=== PATIENT | female | born 1950 | race Caucasian/White ===

== ENCOUNTER → 2017-10-15 15:26 | Outpatient (CLI) | payer MEDICARE, SELFPAY ==
--- NOTE | 2017-10-15 15:31 | MM_ITS ---
MM Dig screening mamm BI w/CAD CAD Screening ORDERING PHYSICIAN : Madhu Fleming MD PATIENT AGE: 67 years GENDER: Female COMPARISON: Previous mammograms available dated November 2012. Also October 2010 and 2011 We are waiting on interval previous studies from [facility]. INDICATION: Routine screening. No hormones. No new complaints Family history. Mother with breast cancer postmenopausal. TECHNIQUE: Standard CC and MLO images were obtained. R2 CAD reviewed. FINDINGS: Lower density breast with no dominant mass nor suspicious calcifications on breast. CAD computer review highlights no areas of concern either RIGHT BREAST: Mild asymmetry lateral laterally of reflect some minimal asymmetric glandular tissue. LEFT BREAST:Left breast appears stable no new areas of concern IMPRESSION: . Stable bilateral mammogram with no significant new findings. Bilateral follow-up one year recommended.. BI-RADS Category: 1 Negative RECOMMENDED FOLLOW-UP: 1YR - 1 YEAR FOLLOW-UP (A letter has been sent to the patient regarding results of the study.)
--- NOTE | 2017-10-15 15:33 | XR_ITS ---
XR DEXA axial skeleton COMPARISON: None HISTORY: Patient is postmenopausal TECHNIQUE: DEXA scanning lumbar spine and bilateral hips FINDINGS: The average BMD lumbar spine L1-L4 is 0.936 g centimeters square with a T score of -2.0. The total BMD left hip is 0.865 g centimeters square with T score -1.1. The left femoral neck is 0.753 g centimeters square with T score of -2.1.] Right hip values are similar. IMPRESSION: T score values in the osteopenia range for lumbar spine and bilateral hips, consider follow-up study in 2 years
== END ==
PROVIDERS: Family Provider Family Medicine; PCP Family Medicine; Visit Provider Family Medicine
DX: Z12.31 Encounter for screening mammogram for malignant neoplasm of breast (principal); Z78.0 Asymptomatic menopausal state
CPT/HCPCS: 77067; 77080

== ENCOUNTER → 2020-10-04 10:05 | Outpatient (CLI) | payer MEDICARE, SELFPAY ==
--- NOTE | 2020-10-04 10:09 | XR_ITS ---
PROCEDURE: XR FOOT WT BEARING RT 3V CLINICAL INDICATION: foot pain Right foot pain COMPARISON: No exams were available for comparison FINDINGS: No fracture or dislocation. No lytic or blastic change. There is normal mineralization. The joint spaces are well-preserved. No significant degenerative/arthritic changes. No erosive changes evident. Other findings:There is a small calcaneal spur. IMPRESSION: No acute findings. Dictated by: Mango Wheeler MD 10/04/2020 13:55 Mango Wheeler MD in [place] 10/04/2020 13:55
--- NOTE | 2020-10-04 10:09 | XR_ITS ---
PROCEDURE: XR FOOT WT BEARING LT 3V CLINICAL INDICATION: foot pain Left foot pain COMPARISON: No exams were available for comparison FINDINGS: No fracture or dislocation. No lytic or blastic change. There is normal mineralization. Pes planus. Small calcaneal spurs noted. Mild bony hypertrophy noted at the distal aspect of the 1st metatarsal. Other findings:None. IMPRESSION: Pes planus Dictated by: Mango Wheeler MD 10/04/2020 13:54 Mango Wheeler MD in [place] 10/04/2020 13:54
== END ==
PROVIDERS: PCP Family Medicine; Visit Provider Nurse Practitioner
DX: M79.672 Pain in left foot (principal); M79.671 Pain in right foot
CPT/HCPCS: 73630

== ENCOUNTER 2024-05-27 13:15 | Outpatient (RCR) | payer MEDICARE, SELFPAY | END 2024-05-27 23:59 | disposition home or self-care (01) | LOC: ST 13:15 | PROVIDERS: PCP Family Medicine; Visit Provider Physical Medicine & Rehabilitation | DX: I63.89 Other cerebral infarction (principal) | CPT/HCPCS: 92523 ==

== ENCOUNTER 2024-07-11 10:43 | Outpatient (CLI) | payer MEDICARE, SELFPAY ==
--- NOTE | 2024-07-11 | CA_ITS ---
FINAL REPORT TECHNIQUE: Bilateral lower extremity venous duplex was performed with augmentation and compression. CLINICAL HISTORY: HTN. Patient had a stroke 03/2024 with brain surgery at that time. She states she had DVT's in bilateral legs performed at outside hospital 03/2024. She states temporary filters were placed until DVT's resolve. Scan performed today to reassess DVT status. COMPARISON: None FINDINGS: Proper flow is seen throughout the deep venous systems bilaterally. There is no evidence of deep venous thrombosis. IMPRESSION: No evidence of deep venous thrombosis. Reviewed, Interpreted and Dictated by Tigre Del Rosario MD Transcribed by Rosalba Glover Authenticated and . [facility]
--- NOTE | 2024-07-11 11:37 | XR_ITS ---
FINAL REPORT CLINICAL HISTORY: LEFT KNEE PAIN: INCLUDE SUNRISE VIEW FINDINGS: Left knee Four views were obtained. There is no fracture or dislocation. The joint spaces appear normal. No soft tissue abnormality is identified. IMPRESSION: No acute process. Reviewed, Interpreted and Dictated by Tigre Del Rosario MD Transcribed by Deanne Latham Authenticated and [facility]
== END 2024-07-11 23:59 | disposition home or self-care (01) ==
PROVIDERS: PCP Family Medicine; Visit Provider Nurse Practitioner
DX: M79.89 Other specified soft tissue disorders (principal); M25.562 Pain in left knee; I82.403 Acute embolism and thrombosis of unspecified deep veins of lower extremity, bilateral
CPT/HCPCS: 73564; 93970

== ENCOUNTER 2024-07-15 10:00 | Outpatient (RCR) | payer MEDICARE, SELFPAY | END 2024-07-15 23:59 | disposition home or self-care (01) | LOC: PT 10:00 | PROVIDERS: PCP Family Medicine; Visit Provider Physical Medicine & Rehabilitation | DX: I63.9 Cerebral infarction, unspecified (principal) | CPT/HCPCS: 97110; 97163; 97530 ==

== ENCOUNTER 2024-07-15 11:00 | Outpatient (RCR) | payer MEDICARE, SELFPAY | END 2024-07-15 23:59 | disposition home or self-care (01) | LOC: OT 11:00 | PROVIDERS: PCP Family Medicine; Visit Provider Physical Medicine & Rehabilitation | DX: I63.9 Cerebral infarction, unspecified (principal) | CPT/HCPCS: 97014; 97110; 97140; 97166; G0283 ==

== ENCOUNTER 2024-08-11 14:00 | Outpatient (RCR) | payer MEDICARE, SELFPAY | END 2024-08-11 23:59 | disposition home or self-care (01) | LOC: OT 14:00 | PROVIDERS: PCP Family Medicine; Visit Provider Physical Medicine & Rehabilitation | DX: I63.9 Cerebral infarction, unspecified (principal) | CPT/HCPCS: 97014; 97110; 97140; G0283 ==

== ENCOUNTER 2024-08-11 15:00 | Outpatient (RCR) | payer MEDICARE, SELFPAY | END 2024-08-11 23:59 | disposition home or self-care (01) | LOC: PT 15:00 | PROVIDERS: PCP Family Medicine; Visit Provider Physical Medicine & Rehabilitation | DX: I63.9 Cerebral infarction, unspecified (principal) | CPT/HCPCS: 97110; 97530 ==

== ENCOUNTER 2024-08-21 13:33 | Outpatient (CLI) | payer MEDICARE, SELFPAY ==
[2024-08-21 14:28] LABS: Basophils # 0.1 K/mm3 (0-0.2); Basophils % 0.7 % (0.1-2.0); Eosinophils # 0.1 K/mm3 (0.0-0.4); Eosinophils % 1.4 % (0.1-12.0); Hematocrit 36.1 % (37.0-47.0); Hemoglobin 11.4 g/dL (12.2-16.2); Lymphocytes # 5.7 K/mm3 (0.7-4.5); Lymphocytes % 59.2 % (10-50); Mean Corpuscular HGB Conc 31.6 g/dL (31.8-35.4); Mean Corpuscular Hemoglobin 29.5 pg (27.0-31.2); Mean Corpuscular Volume 93.5 fl (81-99); Mean Platelet Volume 9.9 fl (7.4-10.4); Monocytes # 0.5 K/mm3 (0.1-1.0); Monocytes % 5.2 % (1.7-9.3); Neutrophils # 3.2 K/mm3 (1.8-7.8); Neutrophils % 33.3 % (37.0-80.0); Platelet Count 193 K/mm3 (142-424); Red Blood Count 3.86 M/mm3 (4.20-5.40); Red Cell Distribution Width 13.1 % (11.5-17.5); White Blood Count 9.5 K/mm3 (4.8-10.8)
[2024-08-21 14:40] LABS: MANUAL DIFFERENTIAL MANUAL DIFFERENTIAL (MANUAL DIFF)
[2024-08-21 14:48] LABS: Alanine Aminotransferase 17 U/L (12-78); Albumin Level 4.5 g/dl (3.5-5.0); Albumin/Globulin Ratio 2.3 (1.1-1.8); Alkaline Phosphatase 82 U/L (38-126); Aspartate Amino Transferase 30 U/L (14-36); Bilirubin,Total 0.2 mg/dl (0.2-1.3); Blood Urea Nitrogen 13 mg/dl (7-17); Carbon Dioxide 31 mmol/L (22.0-30.0); Chloride 105 mmol/L (98-107); Estimated Glomerular Filt Rate 82 ml/min (>60); GFR (African American) 99 ML/MIN (>60); Glucose 91 mg/dl (74-100); Lactate Dehydrogenase 217 U/L (313-618); Sodium 141 mmol/L (136-145); Total Protein,Serum 6.5 g/dl (6.3-8.2)
[2024-08-21 15:07] LABS: Eosinophils % 2 % (0-3); Lymphocytes % 54 % (10-50); Monocytes % 7 % (2-9); Neutrophils % 37 % (42-76); Platelet Estimate Normal; RBC Morphology Normal; Total Cells Counted 100
== END 2024-08-21 23:59 | disposition home or self-care (01) ==
LOC: LAB 13:35
PROVIDERS: PCP Family Medicine; Visit Provider Internal Medicine Medical Oncology
DX: C91.10 Chronic lymphocytic leukemia of B-cell type not having achieved remission (principal)
CPT/HCPCS: 36415; 80053; 83615; 85007; 85025; 85027

== ENCOUNTER 2024-09-11 15:00 | Outpatient (RCR) | payer MEDICARE, SELFPAY | END 2024-09-11 23:59 | disposition home or self-care (01) | LOC: OT 15:00 | PROVIDERS: PCP Family Medicine; Visit Provider Physical Medicine & Rehabilitation | DX: I63.9 Cerebral infarction, unspecified (principal) | CPT/HCPCS: 97014; 97110; 97140; G0283 ==

== ENCOUNTER 2024-10-06 14:00 | Outpatient (RCR) | payer MEDICARE, SELFPAY | END 2024-10-06 23:59 | disposition home or self-care (01) | LOC: OT 14:00 | PROVIDERS: PCP Family Medicine; Visit Provider Physical Medicine & Rehabilitation | DX: I63.9 Cerebral infarction, unspecified (principal) | CPT/HCPCS: 97014; 97110; 97140; 97168; 97530; G0283 ==

== ENCOUNTER 2024-11-12 16:00 | Outpatient (RCR) | payer MEDICARE, SELFPAY | END 2024-11-12 23:59 | disposition home or self-care (01) | LOC: OT 16:00 | PROVIDERS: PCP Family Medicine; Visit Provider Physical Medicine & Rehabilitation | DX: I63.9 Cerebral infarction, unspecified (principal) | CPT/HCPCS: 97014; 97110; 97140; 97168; 97530; G0283 ==

== ENCOUNTER 2024-12-19 08:17 | Outpatient (CLI) | payer MEDICARE, SELFPAY ==
--- NOTE | 2024-12-19 08:21 | XR_ITS ---
FINAL REPORT TECHNIQUE: Bone densitometry calculations of the lumbar spine and bilateral hips were obtained. CLINICAL HISTORY: screening COMPARISON: None FINDINGS: Using L1-4, the bone mineral density of the spine is 0.717 g/cm2, corresponding to T-score of -3.0 and a Z score of -0.6. This is within the range of osteoporosis. Using the left hip, the bone mineral density of the femoral neck is 0.575 g/cm2, corresponding to a T-score of -2.5 and a Z-score of -0.4. This is within the range of osteoporosis. Using the right hip, the bone mineral density of the femoral neck is 0.558 g/cm?, corresponding to a T-score of -2.6 and a Z-score of -0.6. This is within the range of osteoporosis. NOTE: T-score: Standard deviation compared with peak bone mass of young adult mean. *Following the recommendations of the International Society of Bone densitometry, classification of hip BMD is based on the lower of two T-scores; total hip or femoral neck. IMPRESSION: 1. Bone mineral density of the lumbar spine within the range of osteoporosis. 2. Bone mineral density of the bilateral femoral necks within the range of osteoporosis. Reviewed, Interpreted and Dictated by Lizzy Winter MD Transcribed by Jackelyn Rogers Authenticated and [facility]
--- NOTE | 2024-12-19 08:21 | MM_ITS ---
PROCEDURE INFORMATION: Exam: MG Bilateral Screening 3D Mammography Exam date and time: 12/19/2024 8:29 AM Age: 74 years old Clinical indication: Screening examination TECHNIQUE: Imaging protocol: Bilateral Screening tomosynthesis and 2D mammography including computer-aided detection (CAD) when performed. COMPARISON: 1. MG SCBI MM Dig screening mamm BI w/CAD 10/15/2017 3:40 PM 2. MG MAMMO SCREEN 06/28/2015 11:21 AM FINDINGS: MAMMOGRAPHY: Breast composition: There are scattered areas of fibroglandular density. Mass: No suspicious masses. Architectural distortion: None. Calcifications: No suspicious calcifications. Asymmetric density: None. Skin thickening: None. Axillary adenopathy: None. IMPRESSION: No mammographic evidence of malignancy. Annual screening is recommended unless otherwise clinically indicated. ASSESSMENT: BI-RADS Category 1: Negative.
== END 2024-12-19 23:59 | disposition home or self-care (01) ==
LOC: RAD 08:19
PROVIDERS: PCP Family Medicine; Visit Provider Family Medicine
DX: Z12.31 Encounter for screening mammogram for malignant neoplasm of breast (principal); R92.323 Mammographic fibroglandular density, bilateral breasts; M81.0 Age-related osteoporosis without current pathological fracture
CPT/HCPCS: 77063; 77067; 77080

== ENCOUNTER 2025-02-20 12:13 | Outpatient (CLI) | payer MEDICARE, SELFPAY ==
--- OUTSIDE RECORDS SUMMARY | 2024-05-12 14:05 | XMS_ITS | Encounter Summary ---
Author Organization [place] [address] Care Team Providers Care Videotape Editor Name Role Phone Unavailable Primary Care Provider Unavailabl e Encounter Details Date Type Department Care Team (Late st Contact Info) Description 05/12/2024 2:05 PM EDT Hospital Encounter [facility] Referral Lab [address] [place] [phone] Elmer Byrne MD [address] [phone] Social History Tobacco Use Types Packs/Day Years [...] Final Result [facility] [address] [facility] , [address] [place] [phone] documented in this encounter Visit Diagnoses Not on filedocumented in this encounter
--- OUTSIDE RECORDS SUMMARY | 2025-01-28 15:00 | XMS_ITS | Encounter Summary ---
Author Organization [facility] Address [address] 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) Talat Rios MD [address] [address] Phone: tel: fax: Referral ID Status Reason Start Date Expiration Date Visits Requested Visits Authorized [id number] Authorized Specialty Services Required 01/28/2025 07/30/2026 1 1 Scheduling Instructions Memory clinic for cerebral amyloid angiopathy Reason for Visit * Consultation (Routine) - Closed Specialty Diagnoses / Procedures Referred By Jordin mckeon Referred To Contact Neurology Diagnoses 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) Juancarlos Cardenas, CONRADO [address] [facility] [address] [place] [address] Phone: tel: fax: [facility] [address] [place] [address] Phone: tel: fax: Referral ID Status Reason Start Date Expiration Date V isits Requested Visits Authorized [id number] Closed Specialty Services Required 04/23/2024 10/23/2025 1 1 Encounter Details Date Type Department Care Team (Late st Contact Info) Description 01/28/2025 3:00 PM EDT Office Visit [facility] [address] [place] [address] Talat Rios MD [address] [place] [address] Cerebral amyloid angiopathy (CMS/HCC) (Primary Dx); 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 No 03/20/2024 Within the last year, have y ou been humiliated or emotionally abused in other ways by your partner or ex-partner? No Within the last year, have y ou been kicked, hit, slapped, or otherwise physically hurt by your partner or ex-partner? No 03/20/2024 Within the last year, have y ou been raped or forced to have any kind of sexual activity by your partner or ex-partner? No 03/20/2024 PHQ-2 Answer Date Recorded Patient Health Questionnaire-2 Score 0 07/03/2024 Hunger Vital Sign Answer Date Recorded Within the past 12 months, y ou worried that your food would run out before you got the money to buy more. Never true 03/20/20 24 Within the past 12 months, t he food you bought just didn't last and you didn't have money to get more. Never true 03/20/2024 PRAPARE - Transportation Answer Date Re corded In the past 12 months, has l ack of transportation kept you from medical appointments or from getting medications? No 11/2023 In the past 12 months, has l ack of transportation kept you from meetings, work, or from getting things needed for daily living? No 03/20/2024 Housing Stability Vital Sign Answer Maverick e Recorded In the last 12 months, was t here a time when you were not able to pay the mortgage or rent on time? No 03/20/2024 In the last 12 months, how many places have you lived? 1 03/20/2024 In the last 12 months, was t here a time when you did not have a steady place to sleep or slept in a skilled nursing (including now)? No 03/20/2024 Utilities Answer Date Recorded In the past 12 months has th e [employer], gas, oil, or water company threatened to shut off services in your home? No 03/20/2024 Comments Unknown Sex and Gender Information Value Date Recorded Sex Assigned at Not on file Legal Sex Female 11:58 AM EDT Gender Identity Not on file Sexual Orientation Not on file documented as of this encounter Last Filed Vital Signs Vital Sign Reading Time Taken Comments Blood Pressure 104/64 01/28/2025 2:33 PM EDT Pulse 55 01/28/2025 2:33 PM EDT Temperature - - Respiratory Rate - - Oxygen Saturation 98% 01/28/2025 2:33 PM EDT Inhaled Oxygen Concentration - - Weight 47.4 kg (104 lb 8 oz) 01/28/2025 2:33 PM EDT Height 160 cm (5' 3 ) 01/28/2025 2:33 PM EDT Body Mass Index 18.51 01/28/2025 2:33 PM EDT documented in this encounter Miscellaneous Notes * Patient Instructions - Talat Rios MD - 01/28/2025 3:00 PM EDT Images from the original note were not included. Cerebral Amyloid Angiopathy Decrease levetiracetam to 750mg once a day for 7 days and discontinue after that. Patient Education Risk Factors for Stroke Certain health and lifestyle issues--called risk factors--increase your chances of having a stroke.The biggest risk factor for stroke is high blood pressure. But there are many other factors that also put you at risk. The below list can help you identify which risk factors you have. That way, you know where you need to make healthy changes. Talk with your healthcare provider about ways to help reduce your risk factors. What are your risk factors? Risk factors are different for each person. Check off the factors that apply to you. Keep in mind that some factors, such as your age, can???t be changed. But others can be managed. Health risk factors You have high blood pressure. You???re overweight. You have unhealthy cholesterol levels. You have atrial fibrillation. You have atrial flutter. You???ve had a heart attack. You have narrowed arteries. You have diabetes. You are a man. You are an . You are an . You are an . Lifestyle risk factors You rarely exercise. You often eat salty, fried, or greasy foods. You smoke. You have more than 2 alcoholic drinks per day. Age and family history You???re over age 60. A parent, brother, or sister has had a stroke. Metabolic syndrome Any of the factors above puts you at increased risk for stroke. But having 3 or more of certain risk factors raises your risk more. This is a condition called metabolic syndrome. These factors include too much weight around your waist, high blood pressure, high blood sugar, and unhealthy cholesterol levels. If you're a woman, your risks may also include polycystic ovary syndrome. If you have any of these risk factors, be sure to talk with your healthcare provider about how to decrease your riskof stroke and improve your overall health. [employer] last reviewed this educational content on 08/16/2021 ?? [id number] [employer]. All rights reserved. This information is not intended as a substitute for professional medical care. Always follow your healthcare professional's instructions. * Progress Notes - Talat Rios MD - 01/28/2025 3:00 PM EDT Stroke Neurology Consult note: Dear Madhu Fleming MD, I had the pleasure of seeing Eloina Thompson who is a 74 y.o. female being seen at the [facility] today for No chief complaint on file.. Chief Complaint: brain bleed followup HPI: Pt is a 74 y.o. pleasant right handed female with significant past medical hx of gout, glaucoma, being seen in clinic as a follow-up from hospitalization 04/2024. She was admitted with suddenonset Worst headache of her life and nausea/vomiting, left-sided weakness and facial droop, imaging with moderate right frontal intraparenchymal hemorrhage, underwent neurosurgical craniotomy and evacuation, surgical pathology indicative of cerebral amyloid angiopathy. Hospitalization complicatedby new diagnoses of CLL, bilateral DVTs, thrombocytopenia, underwent IVC filter placement. IVC filter was removed in outpatient follow-up in 08/2024. Presents to clinic unaccompanied. Reports no new symptoms. Lives with . No recent ER visits,hospitalizations. Had osteoporosis diagnosed a month ago. No recent infections/other new diagnoses.Reports poor sleep. Goes to bed tired, wake up tired. has reported to pt she snores. Has not had sleep study. No falls. Patient denies any recollection of the events of the day of hospitalization. No history of seizures, was started on levetiracetam as prophylactic since hospitalization. Two routine EEGs were negative for any concerns of interictal/ ictal episodes. Denies smoking, alcohol use, illicit drug use. Past Medical History[1] Family History[2] Surgical History[3] Social History Tobacco Use Smoking status: Never Passive exposure: Never Smokeless tobacco: Never Substance Use Topics Alcohol use: Never Medications Ordered Prior to Encounter[4] Allergies[5] All medications have been reviewed today. Review of Systems: Constitutional; Eye; ENT; Respiratory; Cardiovascular; Gastrointestinal; Integumentary; Genitourinary; Musculoskeletal; Endocrine; Hematological; Neurological; Psychiatric and Allergy/Immunology all reviewed and negative except as in HPI. Objective Vitals: 01/28/25 1433 BP: 104/64 Pulse: 55 SpO2: 98% Physical Examination: Constitutional: alert, awake, in no acute distress Respiratory: no dyspnea at rest or with speech. Abdomen: soft, non distended. Cardiovascular: S1 S2 heard, no murmurs appreciated. Musculoskeletal: pulses felt normal, no gross deformities. Skin: no gross rashes on visible part of the skin. Neuro Exam: Mental status: alert, oriented to person, place and time. Speech spontaneity, comprehension, repetition, naming, reading is grossly intact. Cranial Nerves: pupils symmetric, round and briskly reactive to light bilaterally; visual thompson grossly intact to finger counting; Versions intact in all directions; facial sensations symmetric to light touch and temperature along bilateral V1-V3. Face appears grossly symmetric on smile and at rest. Hearing is grossly symmetric bilaterally to conversations. Tongue is midline on protrusion, uvulais midline. Shoulder shrug is full and 5/5 bilaterally. Motor: Right Left Shoulder abduction 5/5 5/5 Elbow flexion 5/5 5/5 Elbow extension 5/5 5/5 Fingers Key Account Manager 5/5 5/5 Fingers Extension 5/5 5/5 Hip Flexion 5/5 5/5 Knee flexion 5/5 5/5 Knee Extension 5/5 5/5 Plantar Flexion 5/5 5/5 Dorsiflexion 5/5 5/5 Sensory: light touch, temperature and vibration decreased on left upper and lower limbs. Reflexes: 2+ in bilateral biceps, triceps, brachioradialis, patellar. 1+ bilateral ankles. Adorno's negative bilaterally. Co-ordination: intact muwtpr-mr-wirg testing on right, mild ataxia/slowing on left. Gait: normal gait. Reports: Personally reviewed images today: CT head 03/19/2024 with moderate-sized right frontal intraparenchymal hemorrhage with associated cerebral edema, mass effect, midline shift. MRI head w/wo 03/20/2024: post craniotomy and hematoma evacuation, midline shift and mass effect, small areas of restricted diffusion, likely postoperative effects. Reviewed results: Surgical pathology 03/19/2024: very rare capillaries show congophilic material, suggestive of earlycerebral amyloid angiopathy. EEG 03/21/24: no seizures EEG 04/23/24: no seizures. Lab test results reviewed: A1c 5.4, LDL 87, TSH 1.5. Assessment/Plan: // right frontal IPH: 03/2024 // Cerebral Amyloid Angiopathy - discussed at length with patient that the likely etiology of hemorrhage is CAA. Encouraged avoid antithrombotics to reduce risk of future brain bleeds. This includes antiplatelet like aspirin. - decrease LEV to once a day for a week and discontinue. - Referral placed for memory clinic to discuss if any clinical trials exist for her. - Goal BP normotensive, goal A1c< 7.0, goal LDL< 70. - follow-up in Stroke Clinic in about 6 months, sooner for acute concerns. Counseling Documentation: The patient was counseled regardingdiagnostic results, prognosis, instructions for management, patient and family education, medication changes, and impressions. Education provided was written instructions. Additional time was spent in care coordination including medical record review. The total time of encounter was 78 minutes and greater than 50% of the visit was spent in counseling/coordination of care. A copy of After Visit Summary was printed and provided. All questions and concerns were addressed. Patient and family were educated to call 911 for sudden symptoms concerning for stroke. I saw and evaluated the patient with the medical student, Nedra Schmitz, MS3. I discussed the case with the medical student and agree with the findings and plan as documented. I personally performed the Exam and Medical Decision Making. I saw and evaluated the patient with the resident Dr. Jah Mcguire, PGY 4 gel Neurology. I discussed the case with the resident and agree with the findings and plan as documented. Talat Rios MD Vascular Neurology attending physician. [1] Past Medical History: Diagnosis Date Chronic lymphocytic leukemia (CMS/HCC) Glaucoma Gout Intracranial hemorrhage (CMS/HCC) [2] History reviewed. No pertinent family history. [3] Past Surgical History: Procedure Laterality Date CRANIOTOMY HYSTERECTOMY IVC FILTER PLACEMENT TONSILECTOMY, ADENOIDECTOMY, BILATERAL MYRINGOTOMY AND TUBES [4] Current Outpatient Medications on File Prior to Visit Medication Sig Dispense Refill amLODIPine (Norvasc) 10 MG tablet 1 tablet (10 mg) by Per G Tube route 1 (one) time each day. bethanechol (Urecholine) 10 MG tablet 1 tablet (10 mg) by Per G Tube route 3 (three) times a day. Calcium Carbonate-Vitamin D 250-3.125 MG-MCG tablet Take by mouth. donepezil (Aricept) 5 MG tablet 1 tablet (5 mg) by Per G Tube route every night. doxazosin (Cardura) 1 MG tablet 1 tablet (1 mg) by Per G Tube route every night. ipratropium-albuterol (Duo-Neb) 0.5-2.5 mg/3 mL nebulizer solution Take 3 mL by nebulization every 6 (six) hours if needed for wheezing. melatonin 3 MG tablet 1 tablet (3 mg) by Per G Tube route every night. polycarbophil (Fibercon) 625 MG tablet 1 tablet (625 mg) by Per G Tube route 1 (one) time each day. traZODone (Desyrel) 50 MG tablet 0.5 tablets (25 mg) by Per G Tube route every night. [DISCONTINUED] levETIRAcetam (Keppra) 750 MG tablet 1 tablet (750 mg) by Per G Tube route 2 (two) times a day. [DISCONTINUED] amantadine (Symmetrel) 50 MG/5ML solution 15 mL (150 mg) by Per G Tube route 2 (two)times a day. (Patient not taking: Reported on 01/28/2025) [DISCONTINUED] calcium carbonate 648 MG tablet tablet Take by mouth daily. (Patient not taking: Reported on 01/28/2025) [DISCONTINUED] cetirizine (ZyrTEC) 10 MG tablet 1 tablet (10 mg) by Per G Tube route every night. (Patient not taking: Reported on 01/28/2025) [DISCONTINUED] guaiFENesin (Robitussin) 100 MG/5ML solution 20 mL (400 mg) by Per G Tube route every 6 (six) hours. (Patient not taking: Reported on 01/28/2025) [DISCONTINUED] latanoprost (Xalatan) 0.005 % ophthalmic solution Administer 1 drop into both eyes every night. (Patient not taking: Reported on 01/28/2025) [DISCONTINUED] lidocaine (Lidoderm) 5 % patch Apply 1 patch topically 1 (one) time each day at the same time over 12 hours. Remove & discard patch within 12 hours or as directed by MD. (Patient not taking: Reported on 01/28/2025) [DISCONTINUED] magic butt balm (Karaya gum) CMPD (Magic Butt) Apply 1 Application topically every 1(one) hour if needed for diaper rash (diaper change). (Patient not taking: Reported on 01/28/2025) [DISCONTINUED] ondansetron ODT (Zofran-ODT) 4 MG disintegrating tablet 1 tablet (4 mg) by Per G Tube route every 8 (eight) hours if needed for nausea or vomiting. (Patient not taking: Reported on 01/28/2025) [DISCONTINUED] phenol (Chloraseptic) 1.4 % liquid Use 1 mL (1 spray) in the mouth or throat every 4(four) hours if needed for sore throat. (Patient not taking: Reported on 01/28/2025) [DISCONTINUED] senna-docusate (Miguelina-Colace) 8.6-50 MG tablet 1 tablet by Per G Tube route at night if needed for constipation. (Patient not taking: Reported on 01/28/2025) No current facility-administered medications on file prior to visit. 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 difficile 03/29/2024 03/29/2024 Assessment Noted Time A fall risk assessment has been complete d for the patient 01/28/2025 2:33 PM EDT A Body Mass Index follow-up plan has been documented for the patient 01/28/2025 3:25 PM EDT documented as of this encounter Care Teams Fisheries Officer Relationship Specialty Start Date End Date Madhu Fleming MD [address] [place] [address] PCP - General 06/10/24 documented as of this encounter
--- OUTSIDE RECORDS SUMMARY | 2025-02-20 12:16 | XMS_ITS | Encounter Summary ---
Author Organization [facility] Address [address] [place] [address] Care Team Providers Care Flakeboard Line Tender Name Role Phone Pcp, No Primary Care Provider Madhu Oshea MD Primary Care Provider +1- [phone] Encounter Details Date Type Department Care Team (Late st Contact Info) Description 03/24/2024 Lab Requisition [facility] [address] [place] [address] Blake Metzger MD [address] [facility] [address] [place] [address] Encounter for general adult medical examination without abnormal findings Social History Tobacco Use Types Packs/Day Years Used Date Smoking Tobacco: Never Assessed Humiliation, Afraid, Rape, and Kick questionnair e [...] by your partner or ex-partner? No 03/20/2024 Hunger Vital Sign Answer Date Recorded Within [...] place to sleep or slept in a longterm (including now)? No 03/20/2024 Utilities Answer Date Recorded In the past 12 months has th e [employer], gas, oil, or water company threatened to shut off services in your home? No 03/20/2024 Comments Unknown Sex and Gender Information Value Date Recorded Sex Assigned at Not on file Legal Sex Female 11:58 AM EDT Gender Identity Not on file Sexual Orientation Not on file documented as of this encounter Functional Status * Calculated C-SSRS Risk Score (Lifetime/Recent) Answer Date of Assessment Author No Risk Indicated 03/27/2024 8:00 PM EDT Chrissy Ospina, KAROL * Question Answer Date of Assessment Author 1. Wish to be (Past 1 Month) No 024 8:00 PM EDT Chrissy Ospina, RN 2. Non-Specific Active Suici lakeisha Thoughts (Past 1 Month) No 03/27/2024 8:00 PM EDT Fransico Ospina RN 6. Suicidal Behavior (Lifetime) No 8:00 PM EDT Chrissy Ospina, RN documented as of this encounter Plan of Treatment Not on file documented as of this encounter Procedures Procedure Name Priority Date/Time Associated Diagnosis Comments MULTI DRUG RESISTANCE TEST Routine 03/24/2024 8:30 AM EDT Encounter for general adult medical examination without abnormal findings documented in this encounter Results * Multi Drug Resistance Test (03/24/2024 8:30 AM EDT) Culture No growth at day 1 03/25/2024 8:15 AM EDT [facility] Swab (Nares and Miguelina Rectal) 03/24/2024 8:30 AM EDT 03/24/2024 10:09 AM EDT us Blake Metzger MD LAB MICROBIOLOGY - GEN ERAL ORDERABLES Final Result [facility] [address] [place] [address] documented in this encounter Visit Diagnoses Diagnosis Encounter for general adult medical examination without abnormal findings documented in this encounter Additional Health Concerns Infection Onset Date Last Indicated Resolved Time C. difficile Rule-Out 03/29/2024 03/29/20242023 11:05 AM EDT C. difficile 03/29/2024 03/29/2024 COVID-19 Rule-Out 04/19/2024 04/19/2024 04/19/2024 8:29 PM EDT Respiratory Rule-Out 04/19/2024 04/19/2024 024 12:42 AM EDT Assessment Noted Time A Body Mass Index follow-up plan has been documented for the patient 04/23/2024 11:22 AM EDT documented as of this encounter Care Teams Flakeboard Line Tender Relationship Specialty Start Date End Date Pcp, Yue [address] [place] [id number] PCP - General Family Medicine 03/19/24 06/09/24 Madhu Fleming MD [address] [place] [address] PCP - General 06/10/24 documented as of this encounter
--- OUTSIDE RECORDS SUMMARY | 2025-02-20 12:17 | XMS_ITS | Clinical Summary ---
Author Organization Healthcare Address [address] [place] [address] Care Team Providers Care Bore Miner Operator Name Role Phone Madhu Fleming MD Primary Care Provider [phone]- [phone] Allergies No known active allergies Medications amLODIPine (Norvasc) 10 MG tablet 1 tablet (10 mg) by Per G Tube route 1 (one) time each day. 04/24/20 24 Active bethanechol (Urecholine) 10 MG tablet 1 tablet (10 mg) by Per G Tube route 3 (three) times a day. 04/23/20 24 Active donepezil (Aricept) 5 MG tablet 1 tablet (5 mg) by Per G Tube route every night. 04/23/20 24 Active doxazosin (Cardura) 1 MG tablet 1 tablet (1 mg) by Per G Tube route every night. 04/23/20 24 Active ipratropium-albut rickie (Duo-Neb) 0.5-2.5 mg/3 mL nebulizer solution Take 3 mL by nebulization every 6 (six) hours if needed for wheezing. 04/23/20 24 Active melatonin 3 MG tablet 1 tablet (3 mg) by Per G Tube route every night. 04/23/20 24 Active polycarbophil (Fibercon) 625 MG tablet 1 tablet (625 mg) by Per G Tube route 1 (one) time each day. 04/24/20 24 Active traZODone (Desyrel) 50 MG tablet 0.5 tablets (25 mg) by Per G Tube route every night. 04/23/20 24 Active Calcium Carbonate-Vitamin D 250-3.125 MG-MCG tablet Take by mouth. A ctive latanoprost (Xalatan) 0.005 % ophthalmic solutionIndicatio ns:Primary open-angle glaucoma, right eye, moderate stage Administer 1 drop into both eyes every night. Discontinu ed(Per Patient Report) amantadine (Symmetrel) 50 MG/5ML solution 15 mL (150 mg) by Per G Tube route 2 (two) times a day. 04/23/20 24 Discontinu ed(Per Patient Report) cetirizine (ZyrTEC) 10 MG tablet 1 tablet (10 mg) by Per G Tube route every night. 04/23/20 Discontinu ed(Per Patient Report) guaiFENesin (Robitussin) 100 MG/5ML solution 20 mL (400 mg) by Per G Tube route every 6 (six) hours. 04/23/20 Discontinu ed(Per Patient Report) levETIRAcetam (Keppra) 750 MG tablet 1 tablet (750 mg) by Per G Tube route 2 (two) times a day. 04/23/20 Discontinu ed(Therapy completed) lidocaine (Lidoderm) 5 % patch Apply 1 patch topically 1 (one) time each day at the same time over 12 hours. Remove & discard patch within 12 hours or as directed by MD. 04/23/20 Discontinu ed(Per Patient Report) magic butt balm (Karaya gum) CMPD (Magic Butt) Apply 1 Application topically every 1 (one) hour if needed for diaper rash (diaper change). 04/23/20 24 Discontinu ed(Per Patient Report) ondansetron ODT (Zofran-ODT) 4 MG disintegrating tablet 1 tablet (4 mg) by Per G Tube route every 8 (eight) hours if needed for nausea or vomiting. 04/23/20 24 Discontinu ed(Per Patient Report) phenol (Chloraseptic) 1.4 % liquid Use 1 mL (1 spray) in the mouth or throat every 4 (four) hours if needed for sore throat. 04/23/20 24 07/16/2 025 Discontinu ed(Per Patient Report) senna-docusate (Miguelina-Colace) 8.6-50 MG tablet 1 tablet by Per G Tube route at night if needed for constipation. 04/23/20 24 025 Discontinu ed(Per Patient Report) calcium carbonate 648 MG tablet tablet Take by mouth daily. 025 Discontinu ed(Per Patient Report) Active Problems Problem Noted Date Diagnosed Date Chronic lymphocytic leukemia 04/23/2024 Cancer Staging:Clinical:Modified [place] Stage 0(Modified [place] risk: Low, Binet: Stage A) - Signed by Sampson Casey MD on 04/28/2024 Slow transit constipation 03/22/2024 Overview (03/22/2024): No BM on Miralax and Senna Increase senna today Add dulcolax Consider lactulose if no BM Hypernatremia 03/22/2024 Overview (03/22/2024): Goal sodium 150-160 Is on high end on desired goal but stable last 3 checks Continue to follow Switch to 1.5% if necessary Fever 03/21/2024 Overview (03/22/2024): Fever curve improving Unclear etiology in setting of intracranial hemorrhage, possible infection Infection less likely given recent admission, lower likelihood of hospital- acquired infection If fevers again, will send infectious workup 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 Overview (03/22/2024): R frontal IPH s/p hemicrani Treating as hypertensive etiology NS consulted SBP less than 140 Na 150-160 Keep HOB elevated NIHSS and neuro examinations per ICU protocol Will continue ongoing stroke education Continue levetiracetam Acute respiratory failure 03/19/2024 Overview (03/22/2024): Intubated for Hemicrani Continue aggressive pulm secretion mobilization Sedation weaned off; daily PST Wean mechanical ventilator as tolerated Extubate today 03/22 PRN CXR, blood gasses and nebs Glaucoma 03/19/2024 Overview (03/22/2024): Continue latanoprost Leukocytosis 03/19/2024 Overview (03/22/2024): High but stable, Tmax 101.1 Multifactorial etiology in setting of acute hemorrhage Trend for now, may require further evaluation in near future Electrolyte abnormality 03/19/2024 Overview (03/19/2024): Replace per ICU protocol Feeding difficulties 03/19/2024 Overview (03/22/2024): Secondary to OETT Nutrition consulted for TF recs, appreciate coordination of care Tube feeding per nutritional recommendations via DHT FUNDRAISING OFFICER consult as indicated TF slowed due to low phosphorous overnight With adequate replacement, will restart Resolved Problems Problem Noted Date Diagnosed Date Resolved Date On mechanically assisted ventilation 03/20/2024 03/22/2024 Overview (03/22/2024): Propofol for sedation, now weaned off Extubate today Encounters Date Type Department Care Team Description 01/28/2025 3:00 PM EDT Office Visit [place] [facility] [address], [address] [place] [id number] Talat Rios MD Cerebral amyloid angiopathy (CMS/HCC) (Primary Dx); 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) 01/28/2025 Travel from Last 3 Months Immunizations Immunization Administration Dates Next Due Influenza, High-dose, Split Virus, Trivalent, Injectable, preservative free 04/15/2020,04/22/2019,04/30/2018,2016 Influenza, high-dose, quadrivalent 04/04/2022, Pneumococcal 20-rinku Conj Vaccine 08/14/2024 Social History Tobacco Use Types Packs/Day Years Used Date Smoking Tobacco: Never Passive Smoke Exposure: Never Smokeless Tobacco: Never Tobacco Cessation:Counseling Given: Not Answered Alcohol Use Standard Drinks/Week Comments Never 0 [...] the past 12 months has th e electric, gas, oil, or water company threatened to shut off services in your home? No 03/20/2024 Comments Unknown Sex and Gender Information Value Date Recorded Sex Assigned at Not on file Legal Sex Female 11:58 AM EDT Gender Identity Not on file Sexual Orientation Not on file Last Filed Vital Signs Vital Sign Reading Time Taken Comments Blood Pressure 104/64 01/28/2025 2:33 PM EDT Pulse 55 01/28/2025 2:33 PM EDT Temperature 36.3 C (97.3 F) 08/22/2024 12:42 PM EST Respiratory Rate 13 08/22/2024 1:40 PM EST Oxygen Saturation 98% 01/28/2025 2:33 PM EDT Inhaled Oxygen Concentration - - Weight 47.4 kg (104 lb 8 oz) 01/28/2025 2:33 PM EDT Height 160 cm (5' 3 ) 01/28/2025 2:33 PM EDT Body Mass Index 18.51 01/28/2025 2:33 PM EDT Plan of Treatment Health Maintenance Due Date Last Done Comments [facility]-Bone Density Scan 1950 [facility]-Medicare Annual Wellness (AWV) 1950 [facility]-Infant/Child/Adol SDOH Screenings 1950 [id number]-[id number] Vaccine (#1) 1955 [facility]-DTaP,Tdap,and Td Vaccines (1 - Tdap) 1969 [facility]-Hepatitis A Vaccines (1 of 2 - Risk 2-dose series) 1969 [facility]-Zoster Vaccines (1 of 2) 1969 CT Colonography 1995 Colonoscopy 1995 FIT-DNA 1995 FIT 1995 FOBT 1995 Sigmoidoscopy 1995 [facility]-Colorectal Cancer Screening 1995 [facility]-Breast Cancer Screening 2000 [facility]-RSV Vaccine: 60+ Years or (1 - Risk 60-74 years 1-dose series) 2010 [facility]- SDOH Screenings 09/17/2024 [facility]-Adult SDOH Screenings 09/17/2024 03/20/2024 [facility]-Influenza Vaccine (#1) 03/16/202504/04, 04/05/2021, 04/15/2020, Additional history exists [facility]-Depression Screening 07/03/2025 07/03/2024 [facility]-Hepatitis C Screening Completed 03/31/2024, 10/2023 [facility]-Pneumococcal Vaccine: 50+ Years Completed 08/14/2024 HPV Vaccines Aged Out No longer eligi ble based on patient's age to complete this topic [facility]-HIB Vaccines Aged Out No longer e ligible based on patient's age to complete this topic [facility]-IPV Vaccines Aged Out No longer e ligible based on patient's age to complete this topic [facility]-Rotavirus Vaccines Aged Out No lo nger eligible based on patient's age to complete this topic Medical Devices Implanted Type Area Water Manager Device Identifier Shelf Expiration Date Model / Serial / Lot Plate, Low Profile Y 6 Hole 21 - S. - [id number] Implanted:Qty: 2 on 03/19/2024 by Jean-Paul Pina MD at [facility] Implant Right: C[employer] [id number] 03/19/2026 [id number] / . / Cover, Neuro [place] Lp 17mm - S. - [id number] Implanted:Qty: 2 on 03/19/2024 by Jean-Paul Pina MD at [facility] Implant Right: C[employer] [id number] 03/19/2026 421.527 / . / Graft Dura Repair 2x2 Synthecel - [id number] Implanted:Qty: 1 on 03/19/2024 at [facility] Right: C[employer] [id number] 07/15/2026 SC.400.02 5.01S / / [id number] Screw Ti Matrixneuro Selfdrill 4mm - [id number] Implanted:Qty: 15 on 03/19/2024 by Jean-Paul Pina MD at [facility] Right: C[employer] [id number] 04.503.10 4.01 / / Filter Jug Clarendon Vena Cava - [id number] Implanted:Qty: 1 on 04/03/2024 by Augusto Vaughan MD at [facility] Bard Peripherial Vascular-[id number] 02/12/2026 [id number] / / [id number] Procedures Procedure Name Priority Date/Time Associated Diagnosis Comments HEPATITIS C ANTIBODY W/REFLEX TO HCV QUANT PCR Routine 03/31/2024 5:43 AM EDT from Last 3 Months or Most Recently Relevant to Health Maintenance Results * Hepatitis C Antibody (03/31/2024 5:43 AM EDT) Hepatitis C Antibody Negative Negative 03/31/2024 6:42 AM EDT [facility] Blood Venous blood specimen / Unknown Venipuncture / Unknown 03/31/2024 5:43 AM EDT 03/31/2024 6:04 AM EDT us Agatha Matt Escudero DO LAB BLOOD ORDERABLES Final Res ult [facility] [address] [place] [address] from Last 3 Months or Most Recently Relevant to Health Maintenance Additional Health Concerns Infection Onset Date Last Indicated C. difficile 03/29/2024 03/29/2024 Insurance [facility] MEDICARE Advance Directives * Full Code (Latest Code Status on File) Date Activated Date Inactivated Comments 03/19/2024 6:48 PM 04/23/2024 3:00 PM Question Answer Comments Patient has decision-making capacity? Yes Care Teams Bore Miner Operator Relationship Specialty Start Date End Date Madhu Fleming MD [address] [place] [address] PCP - General 06/10/24
--- OUTSIDE RECORDS SUMMARY | 2025-02-20 12:17 | XMS_ITS | Clinical Summary ---
Author Organization [facility] Address [address] [place] [address] Care Team Providers Care Student Accounts Coordinator Name Role Phone Unavailable Primary Care Provider Unavailabl e Source Comments This information has been disclosed to you from confidential records protectedfrom disclosure by state law. You shall make no further disclosure of thisinformation without the specific, written, and informed release of theindividual to whom it pertains, or as otherwise permitted by law. A generalauthorization for the release of medical or other information is not sufficientfor the purposes of therelease of HIV test results or diagnoses. [id number] Social History Tobacco Use Types Packs/Day Years Used Date Smoking Tobacco: Never Assessed Comments Unknown Sex and Gender Information Value Date Recorded Sex Assigned at Not on file Legal Sex Female 4:12 PM EST Gender Identity Not on file Sexual Orientation Not on file Plan of Treatment Not on file Insurance [place] MEDICARE [place] [address] [place] [address]
--- OUTSIDE RECORDS SUMMARY | 2025-02-20 12:17 | XMS_ITS | Encounter Summary ---
Author Organization Healthcare Address [address] [place] [address] Care Team Providers Care Infantry Assaultman Name Role Phone Madhu Fleming MD Primary Care Provider +1- [phone] Encounter Details Date Type Department Care Team (Latest Contact Info) Description 01/28/2025 Travel Social History Tobacco Use Types Packs/Day Years [...] on file documented as of this encounter Visit Diagnoses Not on filedocumented in this encounter Additional Health Concerns Infection Onset Date Last Indicated Resolved Time C. difficile 03/29/2024 03/29/2024 Assessment Noted Time A fall risk assessment has been complete d for the patient 01/28/2025 2:33 PM EDT A Body Mass Index follow-up plan has been documented for the patient 01/28/2025 3:25 PM EDT documented as of this encounter Care Teams Infantry Assaultman Relationship Specialty Start Date End Date Madhu Fleming MD [address] [place] [address] PCP - General 06/10/24 documented as of this encounter
--- OUTSIDE RECORDS SUMMARY | 2025-02-20 12:17 | XMS_ITS ---
Author Organization Healthcare Address [address] [place] [address] Care Team Providers Care Railroad Accountant Name Role Phone Madhu Fleming MD Primary Care Provider +1- [phone] Active Problems Problem Noted Date Diagnosed Date [...] Tube feeding per nutritional recommendations via DHT OFFICE SWEEPER consult as indicated TF slowed due to low phosphorous overnight With adequate replacement, will restart Current Treatment and Therapy Plans No current plan information found. Past Treatment and Therapy Plans No past plan information found. Lifetime Dose Tracking * Chemical Lifetime Dose Automatic Entry Manual Entr y Fluoro Time 10.3 minutes 10.3 minutes 0 minutes Air Kerma 103.6 mGy 103.6 mGy 0 mGy Air Kerma Area Product 2,261.28 Gym 2,261.28 Gym 0 Gym Resolved Problems Problem Noted Date Diagnosed Date Resolved Date On mechanically assisted ventilation 03/20/2024 03/22/2024 Overview (03/22/2024): Propofol for sedation, now weaned off Extubate today
--- OUTSIDE RECORDS SUMMARY | 2025-02-20 12:17 | XMS_ITS | Clinical Summary ---
Author Organization [facility] Address [address] [facility] [place] [address] Phone Care Team Providers Care Press Tender Smoke Signal Name Role Phone Unavailable Primary Care Provider Unavailabl e Medications * This document contains information received from the source organization and may not represent a complete record from that organization. donepeziL (ARICEPT) 5 mg Oral Tablet Take 5 mg by mouth nightly. Active traZODone (DESYREL) 50 mg Oral Tablet Take 25 mg by mouth nightly. Active Active Problems No known active problems Social History Tobacco Use Types Packs/Day Years Used Date Smoking Tobacco: Never Assessed Comments Unknown Sex and Gender Information Value Date Recorded Sex Assigned at Not on file Legal Sex Female 8:13 PM EDT Gender Identity Not on file Sexual Orientation Not on file Obstetrics History Plan of Treatment Health Maintenance Due Date Last Done Comments Wellness Exam Medicare 1953 Hepatitis C Screening 1968 DTaP/TDaP/Td (1 - Tdap) 1969 Breast Cancer Screening 1990 Cologuard 1995 Colon Cancer Screening 1995 Colonoscopy 1995 FIT 1995 Sigmoidoscopy 1995 Virtual Colonography 1995 Pneumococcal Vaccine 50+ (1 of 1 - PCV) 2000 Zoster (1 of 2) 2000 Bone Density Screening 2015 COVID-19 Vaccine (1 - 2023- season) 2024 Influenza Vaccine (#1) 2025 2, 04/05/2021, 04/15/2020, Additional history exists Hepatitis B Vaccine Aged Out No longe r eligible based on patient's age to complete this topic Meningococcal B Vaccine Aged Out No l onger eligible based on patient's age to complete this topic Insurance [employer] MEDICARE IN PART A AND B MEDICARE [place] PART A AND B [place]ICARE [place] PART A AND B
[2025-02-20 12:52] LABS: Hematocrit 36.6 % (37.0-47.0); Hemoglobin 11.1 g/dL (12.2-16.2); Immature Granulocytes % 0.2 %; Mean Corpuscular HGB Conc 30.3 g/dL (31.8-35.4); Mean Corpuscular Hemoglobin 29.9 pg (27.0-31.2); Mean Corpuscular Volume 98.7 fl (81-99); Nucleated Red Blood Cells % 0 %; Platelet Count 192 K/mm3 (142-424); Red Blood Count 3.71 M/mm3 (4.20-5.40); Red Cell Distribution Width-SD 48.2 fL; White Blood Count 9.5 K/mm3 (4.8-10.8)
[2025-02-20 13:10] LABS: Alanine Aminotransferase 14 U/L (12-78); Albumin Level 4.3 g/dl (3.5-5.0); Albumin/Globulin Ratio 2.0 (1.1-1.8); Alkaline Phosphatase 74 U/L (38-126); Anion Gap 9.1 mEq/L (5-15); Aspartate Amino Transferase 28 U/L (14-36); Bilirubin,Total 0.2 mg/dl (0.2-1.3); Blood Urea Nitrogen 17 mg/dl (7-17); Calcium 9.1 mg/dl (8.4-10.2); Carbon Dioxide 31 mmol/L (22.0-30.0); Chloride 106 mmol/L (98-107); Creatinine,Serum 0.90 mg/dl (0.52-1.04); Estimated Glomerular Filt Rate 61 ml/min (>60); GFR (African American) 74 ML/MIN (>60); Globulin 2.2 g/dL (1.3-3.2); Glucose 85 mg/dl (74-100); Potassium 4.1 mmoL/L (3.5-5.1); Sodium 142 mmol/L (136-145); Total Protein,Serum 6.5 g/dl (6.3-8.2)
[2025-02-20 15:08] LABS: RBC Morphology Normal; Total Cells Counted 100
== END 2025-02-20 23:59 | disposition home or self-care (01) ==
LOC: LAB 12:14
PROVIDERS: PCP Family Medicine; Visit Provider Internal Medicine Medical Oncology
DX: C91.10 Chronic lymphocytic leukemia of B-cell type not having achieved remission (principal)
CPT/HCPCS: 36415; 80053; 83615; 85007; 85025; 85027

== ENCOUNTER 2025-07-13 13:05 | Outpatient (CLI) | payer MEDICARE, SELFPAY ==
--- OUTSIDE RECORDS SUMMARY | 2024-05-12 13:05 | XMS_ITS | Encounter Summary ---
Author Organization [place] [address] Care Team Providers Care Career Professional Name Role Phone Unavailable Primary Care Provider Unavailabl e Encounter Details Date Type Department Care Team (Late st Contact Info) Description 05/12/2024 2:05 PM EDT Hospital Encounter [facility] Referral Lab [address] [place] [address] Elmer Byrne MD [address] [place] [phone] Social History Tobacco Use Types Packs/Day Years Used Date Smoking Tobacco: Never Assessed Comments Unknown Sex and Gender Information Value Date Recorded Sex Assigned at Not on file Legal Sex Female 8:13 PM EDT Gender Identity Not on file Sexual Orientation Not on file documented as of this encounter Plan of Treatment Not on file documented as of this encounter Results * (ABNORMAL) URINALYSIS (05/13/2024 9:05 AM EDT) UA Color Light Yellow 05/13/2024 10:11 AM EDT [facility] UA Appear Cloudy(A) Clear 05/13/2024 10:11 AM EDT [facility] UA Glucose Negative Negative mg/dL 05/13/2024 10:11 AM EDT [facility] UA Ketones Negative Negative mg/dL 05/13/2024 10:11 AM EDT [facility] UA Blood Trace (0.03 mg/dL)(A) Negative 05/13/2024 10:11 AM EDT [facility] UA pH 6.5 5.0 - 8.0 pH 05/13/2024 10:11 AM EDT [facility] UA Protein Trace (10-20 mg/dL) Negative mg/dL 05/13/2024 10:11 AM EDT [facility] UA Urobilinogen Normal <=1 mg/dL 10:11 AM EDT [facility] UA Bili Negative Negative 05/13/2024 10:11 AM EDT [facility] UA Nitrite Positive(A) Negative 05/13/2024 10:11 AM EDT [facility] UA Leuk Est 4+ (500 Umu/mcl)(A) Negative 05/13/2024 10:11 AM EDT [facility] UA Spec Grav 1.014 1.001 - 1.035 no units 05/13/2024 10:11 AM EDT [facility] Comment:Reference range grady d for random specimens only. UA WBC 138(H) 0 - 4 /HPF 05/13/2024 10:11 AM EDT [facility] UA RBC 4(H) 0 - 3 /HPF 05/13/2024 10:11 AM EDT [facility] UA Squam Epi 3+ /LPF 05/13/2024 10:11 AM EDT [facility] UA Bacteria 2+(A) Negative /HPF 05/13/2024 10:11 AM EDT [facility] Urine 05/13/2024 9:05 AM EDT 05/13/2024 9:06 AM EDT us Elmer Byrne MD URINE ORDERABLES Final Result [facility] [address] [facility] , [address] [place] [phone] documented in this encounter Visit Diagnoses Not on filedocumented in this encounter
--- OUTSIDE RECORDS SUMMARY | 2024-05-15 08:30 | XMS_ITS ---
[facility] [address] [place] [id number] Care Team Providers Care Service Girl Name Role Phone Komal Fleming Primary Care Provider Allergies No Known Allergies Results Component Value Reference Range Notes Urinalysis - Inhouse Reviewed date:05/15/2024 05:10:15 PM Interpretation: Performing Lab: Notes/Report: Color/Clarity cloudy, pus Leuk 3+ Nitrite neg Urobili 3.2 Protein 3+ pH 5.5 Blood 3+ Sp. Gr. 1.025 Ketone trace Bili 1+ Gluc neg TEN-UTI panel Reviewed date:05/26/2024 12:49:38 PM Interpretation:Abnormal Performing Lab: Notes/Report: Abnormal Reason For Referral Reason at [facility] for new onset chronic lynmphocytic leukemia Diagnosis 1 Chronic lymphocytic leukemia (C91.10) Referral Organization [facility] Referring Provider First Name Komal Gamble Referring Provider Last Name Lonnie Referring Provider [facility] ctice Referred Provider Abdoul Mckeon Referred Provider Specialty Hematology/O ncology General Notes Bertha Pollock 05/16/20 8:46:27 AM > faxed to [facility] OncologyMaris Brynn 05/26/2024 1:09:46 PM > oncology saw patient last week Referral Priority Routine Reason [facility] for hos pital f/u from acute cerebral hemorrhage. Contact phone number at is [phone] Diagnosis 1 Nontraumatic acute c erebral hemorrhage (I61.9) Referral Organization [facility] Referring Provider First Name Komal Gamble Referring Provider Last Name Lonnie Referring Provider [facility] ctice Referred Provider Neurology, . Referred Provider Specialty Neurology General Notes Bertha Pollock 05/16/20 8:49:31 AM > spoke to front desk administrator; must fax referral to ; faxed referral Referral Priority Routine Reason [facility] for hospital f/u on placement of IVC filter. Contact number at is [phone] Diagnosis 1 Acute deep vein thro mbosis (DVT) of both lower extremities, unspecified vein (I82.403) Referral Organization [facility] Referring Provider First Name Komal Gamble Referring Provider Last Name Lonnie Referring Provider Speciality [facility] Giorgio urrutia Referred Provider radiology, . Referred Provider Specialty Radiology General Notes Bertha Pollock 05/16/20 9:01:06 AM > spoke with Clara; referral must be faxed Referral Priority Routine REASON FOR VISIT f/u on admit with stroke and rehab at [facility] in [place], discuss Home Health needs Medications Medication SIG (Take, Route, Frequency, Duration) Notes Start Date End Date Status Lidocaine-Hydrocort (Perianal) 3-0.5 % 1 belinda rectally 2 times a day 04/05/2021 Not-Taking Lidocaine 4 % 1 application as nee ded Externally three times a day as needed 01/08/2024 Not-Taking Sulfacetamide Sodium 10 % 2 gtt in each affected eye qid 05/17/2020 Not-Taking Doxazosin Mesylate 1 MG 1 tablet Orally Once a day Active amLODIPine Besylate 10 MG 1 tablet Orall y Once a day Active Konsyl Original Daily Fiber Active Cetirizine HCl 10 MG 1 tablet Orally Onc e a day; Duration: 30 day(s) Active Bethanechol Chloride 10 MG 1 tablet 1 hour before or 2 hours after meals Orally Three times a day; Duration: 30 day(s) Active Melatonin 3 MG 1 tablet at bedtime as needed Orally Once a day; Duration: 30 day(s) Active Xalatan 0.005 % 1 drop into affected eye in the evening Ophthalmic Once a day Active Ondansetron 4 MG 1 tablet on the tong ue and allow to dissolve Orally Once a day; Duration: 30 day(s) Active Azelastine HCl 0.1 % 1 puff in each nost ril Nasally Twice a day; Duration: 30 day(s) Active Acetaminophen 325 MG 1 capsule as needed Orally every 6 hrs Active Docusate Sodium 50 MG 1 capsule as neede d Orally Once a day; Duration: 30 day(s) Active traZODone HCl 50 MG 1 tablet at bedtime as needed Orally Once a day; Duration: 30 day(s) Active Donepezil HCl 5 MG 1 tablet at bedtime Orally Once a day Active Keppra 750 MG 1 tablet Orally ever y 12 hrs Active Immunizations Vaccine Route Administration Date Status Comme nts Fluzone High Dose (65yr and older) IM Intramuscular 05/15/2024 Administered Problems Problem Type SNOMED Code ICD Code Onset Dates Problem Status W/U Status Risk Notes Problem Cerebral hemorrhage (599962157) Nontraumatic acute cerebral hemorrhage (I61.9) Active confirmed Problem Chronic lymphocytic leukemia (80894989) Chronic lymphocytic leukemia (C91.10) Active confirmed Problem Hypertension (88264441) Hypertension (I10) Active confirmed Vital Signs Weight 100.4 lbs 05/15/2024 Blood pressure systolic 106 mm Hg 05/15/20 24 Blood pressure diastolic 60 mm Hg 024 Heart Rate 100 /min 05/15/2024 Height 63 in 05/15/2024 BMI 17.78 kg/m2 05/15/2024 Encounters Encounter Location Date Provider Diagnosis [facility] [address] [phone] 05/15/2024 Komal Fleming Dysuria R30.0 ; Nontraumatic acute cerebral hemorrhage I61.9 ; Chronic lymphocytic leukemia C91.10 ; Hypertension I10 ; Acute deep vein thrombosis (DVT) of both lower extremities, unspecified vein I82.403 and Encounter for immunization Z23 Assessments Encounter Date Diagnosis (ICD Code) Assessment Notes Treatment Notes Treatment Clinical Notes Section Notes 05/15/2024 Dysuria (ICD-10 - R30.0) 05/15/2024 Nontraumatic acute cerebral hemorrhage (ICD-10 - I61.9) 05/15/2024 Chronic lymphocytic leukemia (ICD-10 - C91.10) 05/15/2024 Hypertension (ICD-10 - I10) 05/15/2024 Acute deep vein thrombosis (DVT) of both lower extremities, unspecified vein (ICD-10 - I82.403) Anticoagulation deferred due to recent cerebral hemorrhage and thrombocytopenia 05/15/2024 Encounter for immunization (ICD-10 - Z23) Plan Of Treatment Medication Medication Name Sig Start Date Stop Date Notes Doxazosin Mesylate 1 MG 1 tablet Orally Once a day amLODIPine Besylate 10 MG 1 tablet Orally Once a day Donepezil HCl 5 MG 1 tablet at bedtime Orally Once a day Keppra 750 MG 1 tablet Orally every 12 hrs Treatment Notes Assessment Notes Acute deep vein thrombosis ( DVT) of both lower extremities, unspecified vein Anticoagulation deferred due to recent cerebral hemorrhage and thrombocytopenia Referrals Referral Date Details 05/15/2024 05/15/2024, at [facility] f or new onset chronic lynmphocytic leukemia, Abdoul Mckeon 05/15/2024 05/15/2024, Neuro logy for hospital f/u from acute cerebral hemorrhage. Contact phone number at is [phone], . Neurology 05/15/2024 05/15/2024, [facility] for hospital f/u on placement of IVC filter. Contact number at is [phone], . radiology Next Appt Details Follow Up: 2 Months, Reason: Progress Notes * OPAL MONET MDOB:1949 (75 yo F)Acc No.[id number]:05/15/2024 Extended Visit Patient: OPAL MANN Provider: Komal Fleming M.D. :1950 A ge:73 Y S ex:Female Date:05/15/2024 Address:[address] [place] [address] , [id number] Subjective: * Chief Complaints: * 1 . f/u on admit with stroke and rehab at [facility] in [place], discuss Home Health needs. * HPI: N eurology: Kaye is seen for her initial follow-up following admission for hemorrhagic stroke in March. She began having headache on 03/18/2024 which progressively worsened associated with dysarthria and left-sided weakness and she was taken to the by EMS. She was diagnosed with a nontraumatic right cerebral hemorrhage with 10 mm midline shift and mild right-sided uncal herniation requiring a right frontal craniotomy for evacuation of the hematoma. She was also diagnosed with hypertension and started on amlodipine. During admission she also developed leukocytosis and was treated for pneumonia and C. difficile. She persistent leukocytosis prompting hematology consultation and workup for thrombocytopenia as well. She was ultimately diagnosed with new onset chronic lymphocytic leukemia. During her evaluation, she was also found to have bilateral DVTs in both legs. However because of her recent intracranial hemorrhage and thrombocytopenia, decision was made not to anticoagulate and IVC filter was placed. She had poststroke dysphagia requiring feeding tube for period of time. She had urinary retention and she was ultimately discharged with an indwelling Randle which has since been removed and she is voiding on her own. She was hospitalized for total of 35 days and then was discharged to an acute rehab facility in [facility] and was just discharged home yesterday. I have no details from the rehab center but according to her she has made good progress. Her speech is improved. Left-sided weakness also is improving. She is now able to eat on her own but admits her appetite is poor. Randle catheter was removed. She is complaining of some dysuria. * ROS: D ERMATOLOGY: no R edson. n o H antwan. G ASTROENTEROLOGY: no N ausea. n o V omiting. n o D iarrhea.? U ROLOGY: no D ifficulty urinating. n o B lood in urine. 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 * Surgical History: h ysterectomy and right ooporectomy , skin cancer removed from forehead-Dr Petersen 09/2017, Colonoscopy , Right craniotomy 03/2024, IVC filter 03/2024. * Hospitalization/Major Diagno stic Procedure: U [facility] for right cerebral hemorrhagic stroke, hypertension, CLL, DVT 03/2024. * Family History: M other: alive, breast cancer, HBP, CHF, pacemaker. 1 brother(s) . . brother with colon CA. * Social History: C URRENT TOBACCO USE S moking Status: Patient does NOT smoke. M arital Status: . Past smoking status: no. * Medications: T vazquez Keppra 750 MG Tablet 1 tablet Orally every 12 hrs , Taking Azelastine HCl 0.1 % Solution 1 puff in each nostril Nasally Twice a day , Taking Ondansetron 4 MG Tablet Disintegrating 1 tablet on the tongue and allow to dissolve Orally Once a day , Taking Docusate Sodium 50 MG Capsule 1 capsule as needed Orally Once a day , Taking Acetaminophen 325 MG Capsule 1 capsule as needed Orally every 6 hrs , Taking traZODone HCl 50 MG Tablet 1 tablet at bedtime as needed Orally Once a day , Taking Melatonin 3 MG Tablet 1 tablet at bedtime as needed Orally Once a day , Taking Xalatan 0.005 % Solution 1 drop into affected eye in the evening Ophthalmic Once a day , Taking Doxazosin Mesylate 1 MG Tablet 1 tablet Orally Once a day , Taking Donepezil HCl 5 MG Tablet 1 tablet at bedtime Orally Once a day , Taking Cetirizine HCl 10 MG Tablet Chewable 1 tablet Orally Once a day , Taking Konsyl Original Daily Fiber , Taking Bethanechol Chloride 10 MG Tablet 1 tablet 1 hour before or 2 hours after meals Orally Three times a day , Taking amLODIPine Besylate 10 MG Tablet 1 tablet Orally Once a day , Not-Taking Lidocaine 4 % Ointment 1 application as needed Externally three times a day as needed , Not-Taking Lidocaine-Hydrocort (Perianal) 3-0.5 % Cream 1 belinda rectally 2 times a day , Not-Taking Sulfacetamide Sodium 10 % Solution 2 gtt in each affected eye qid , Medication List reviewed and reconciled with the patient * Allergies: N .K.D.A. Objective: * Vitals: W t:100.4, Temp:98.4, BP:106/60, HR:100, O2 Sat:98% on RA, Nurse:ROD, Ht: 63, BMI:17.78. * Examination: N eurology: S he comes in accompanied by her . She is ambulating with a rolling walker. She is alert and oriented. Affect is a bit flat and speech is weak but fluent. She has no memory of most of her stay at . Color slightly pale. Craniotomy incision is healing well. Lungs are clear to auscultation. Heart is regular with no ectopy or murmurs. Abdomen is thin, soft, nondistended and nontender. Lower extremities show trace pedal edema. Neurologic exam is remarkable for mild left-sided weakness. Assessment: * Assessment: 1. N ontraumatic acute cerebral hemorrhage - I61.9 (Primary) 2 . D ysuria - R30.0 3 . C hronic lymphocytic leukemia - C91.10 4 . H ypertension - I10 5 . A cute deep vein thrombosis (DVT) of both lower extremities, unspecified vein - I82.403 6 . E ncounter for immunization - Z23 Plan: * Treatment: 2. D ysuria L AB: Urinalysis - Inhouse (Collection Date & Time - 05/15/2024) Value Reference Range C olor/Clarity cloudy, pus * L euk 3+ * N itrite neg * U robili 3.2 * P rotein 3+ * p H 5.5 * B lood 3+ * S p. Gr. 1.025 * K etone trace * B may 1+ * G quan neg * Bushra Rangel 05/15/2024 3:3 5:44 PM > TENS panel ordered ?LAB: TEN-UTI panel (Collection Date & Time - 05/15/2024)?Abnormal* Yanet Vilchis 024 12:43:15 PM > See phone encounter 3.?Chronic lymphocytic leukemia? Referral To:Abdoul Mckeon??Hematology/Oncology ?Reason:at [facility] for new onset chronic lynmphocytic leukemia 4.?Hypertension? Continue amLODIPine Besylate Tablet, 10 MG, 1 tablet, Orally, Once a day;?Continue Doxazosin Mesylate Tablet, 1 MG, 1 tablet, Orally, Once a day.?? 5.?Acute deep vein thrombosis (DVT) of both lower extremities, unspecified vein? Notes: Anticoagulation deferred due to recent cerebral hemorrhage and thrombocytopenia? Referral To:. radiology??Radiology ?Reason:[facility] at [facility] f/u on placement of IVC filter. Contact number at is [phone] * Immunizations: Fluzone High Dose (65yr and older) : 0.5 mL (Route: Intramuscular) given by Bushra Rangel on Right Deltoid (Encounter for immunization) * Procedure Codes: 9 [address] [place], [address] Urinalysis, no micro * Follow Up: 2 Months * Images: Billing Information: * Visit Code: 82355 Office Visit, Est Pt., Level 4. * Procedure Codes: [address] [place]. [address] Urinalysis, no micro. * Electronic signature of Komal Fleming MD on 2025 at 01:07 PM EST Sign off status: Pending * Provider: Komal Fleming M.D. Date: Generated for Rene walls/Jarad/Almita on: 01:07 PM EST History and Physical Notes * Examination Category Sub-Category Detail Notes Category Not es Neurology She comes in companied by her . She is ambulating with a rolling walker. She is alert and oriented. Affect is a bit flat and speech is weak but fluent. She has no memory of most of her stay at . Color slightly pale. Craniotomy incision is healing well. Lungs are clear to auscultation. Heart is regular with no ectopy or murmurs. Abdomen is thin, soft, nondistended and nontender. Lower extremities show trace pedal edema. Neurologic exam is remarkable for mild left-sided weakness. Consultation Request Notes Referral Date Referring Provider Referred Provider Not es 05/15/2024 Komal Fleming Michael at [facility] fo r new onset chronic lynmphocytic leukemia 05/15/2024 Komal Fleming Neurology, . Neurolo gy for hospital f/u from acute cerebral hemorrhage. Contact phone number at is [phone] 05/15/2024 Komal Fleming radiology, . [facility] Radiology at Clinic for hospital f/u on placement of IVC filter. Contact number at is [phone]
--- OUTSIDE RECORDS SUMMARY | 2024-08-14 08:30 | XMS_ITS ---
Author Organization [facility] Address [address] [facility] [address] [place] [id number] Care Team Providers Care Register In Chancery Name Role Phone Komal Fleming Primary Care Provider Allergies No Known Allergies REASON FOR VISIT 2 months check and AWV Medications Medication SIG (Take, Route, Frequency, Duration) Notes Start Date End Date Status Xalatan 0.005 % 1 drop into affected eye in the evening Ophthalmic Once a day Active Ondansetron 4 MG 1 tablet on the tong ue and allow to dissolve Orally Once a day; Duration: 30 day(s) Active Docusate Sodium 50 MG 1 capsule as neede d Orally Once a day; Duration: 30 day(s) Active Acetaminophen 325 MG 1 capsule as needed Orally every 6 hrs Active Melatonin 3 MG 1 tablet at bedtime as needed Orally Once a day; Duration: 30 day(s) Active Lidocaine-Hydrocort (Perianal) 3-0.5 % 1 belinda rectally 2 times a day 04/05/2021 Not-Taking Sulfacetamide Sodium 10 % 2 gtt in each affected eye qid 05/17/2020 Not-Taking traZODone HCl 50 MG 1 tablet at bedtime as needed Orally Once a day; Duration: 90 days Active Lidocaine 4 % 1 application as nee ded Externally three times a day as needed 01/08/2024 Not-Taking Azelastine HCl 0.1 % 1 puff in each nost ril Nasally Twice a day; Duration: 30 day(s) Active amLODIPine Besylate 10 MG 1 tablet Orall y Once a day Active Cetirizine HCl 10 MG 1 tablet Orally Onc e a day; Duration: 90 days Active Keppra 750 MG 1 tablet Orally ever y 12 hrs Active Donepezil HCl 5 MG 1 tablet at bedtime Orally Once a day Active Doxazosin Mesylate 1 MG 1 tablet Orally Once a day Active Konsyl Original Daily Fiber Active Bethanechol Chloride 10 MG 1 tablet 1 hour before or 2 hours after meals Orally Three times a day; Duration: 30 day(s) Active Immunizations Vaccine Route Administration Date Status Comme nts Prevnar (PCV20) IM Intramuscular 08/14/2024 Administered Vital Signs Weight 100.2 lbs 08/14/2024 Blood pressure systolic 122 mm Hg 08/14/19 25 Blood pressure diastolic 68 mm Hg 025 Heart Rate 62 /min 08/14/2024 Height 63 in 08/14/2024 BMI 17.75 kg/m2 08/14/2024 Encounters Encounter Location Date Provider Diagnosis [facility] [address] [place] [id number] 08/14/2024 Komal Fleming Adult general medica l examination Z00.00 ; Nontraumatic acute cerebral hemorrhage I61.9 ; Chronic lymphocytic leukemia C91.10 ; Hypertension I10 ; Acute deep vein thrombosis (DVT) of both lower extremities, unspecified vein I82.403 ; Encounter for immunization Z23 ; Osteopenia M85.80 and BMI less than 19,adult Z68.1 Assessments Encounter Date Diagnosis (ICD Code) Assessment Notes Treatment Notes Treatment Clinical Notes Section Notes 08/14/2024 Adult general medical examination (ICD-10 - Z00.00) Patient instructed to return to office Annually for Annual Wellness Visits to include annual screenings of Pain assessment, Functional Ability assessment, Cognitive Ability assessment, Fall Risk assessment, Depression screening and Bladder control screening. 08/14/2024 Nontraumatic acute cerebral hemorrhage (ICD-10 - I61.9) Follow-up with neurology 08/14/2024 Chronic lymphocytic leukemia (ICD-10 - C91.10) Continue follow-up with Dr. Mckeon 08/14/2024 Hypertension (ICD-10 - I10) 08/14/2024 Acute deep vein thrombosis (DVT) of both lower extremities, unspecified vein (ICD-10 - I82.403) Anticoagulation deferred due to recent cerebral hemorrhage and thrombocytopenia 08/14/2024 Encounter for immunization (ICD-10 - Z23) 08/14/2024 Osteopenia (ICD-10 - M85.80) 08/14/2024 BMI less than 19,adult (ICD-10 - Z68.1) Plan Of Treatment Medication Medication Name Sig Start Date Stop Date Notes amLODIPine Besylate 10 MG 1 tablet Orally Once a day Keppra 750 MG 1 tablet Orally every 12 hrs Donepezil HCl 5 MG 1 tablet at bedtime Orally Once a day Doxazosin Mesylate 1 MG 1 tablet Orally Once a day Treatment Notes Assessment Notes Adult general medical examination Patien t instructed to return to office Annually for Annual Wellness Visits to include annual screenings of Pain assessment, Functional Ability assessment, Cognitive Ability assessment, Fall Risk assessment, Depression screening and Bladder control screening. Nontraumatic acute cerebral hemorrhage F ollow-up with neurology Chronic lymphocytic leukemia Continue fo llow-up with Dr. Mckeon Acute deep vein thrombosis ( DVT) of both lower extremities, unspecified vein Anticoagulation deferred due to recent cerebral hemorrhage and thrombocytopenia Next Appt Details Follow Up: 4 Months, Reason: Progress Notes * OPAL MONET MDOB:1949 (75 yo F)Acc No.[id number]:08/14/2024 Annual Wellness Visit Patient: Stella SPRINGERJACIGila OPAL Davis Provider: Komal Fleming M.D. :1950 A ge:74 Y S ex:Female Date:08/14/2024 Address:[address] [place] [address] [id number] Subjective: * Chief Complaints: * 1 . 2 months check and AWV. * HPI: H PI: Patient is here today for Mary lewis returns for scheduled follow up and a Medicare Annual Wellness Visit. . N eurology: She has had a stable course since her last office visit. She continues with physical therapy and is making progress with strength and balance. She is still getting around with a walker. She complains of left knee pain and stiffness. Recent x-ray was negative. She has not been back to for neurology follow-up as yet. She missed her appointment due to inclement weather. She continues on her antiseizure medication with no reported seizure activity. G astroenterology: Her is concerned about her weight but she states she is eating fine. She denies dysphagia or abdominal pain. She did have her G-tube removed. H ematology: She had her initial consultation with Dr. Mckeon for her new diagnosis of chronic lymphocytic leukemia. She is receiving no active treatment, only observation and monitoring of her labs. * ROS: D ERMATOLOGY: no R edson. n o H antwan. G ASTROENTEROLOGY: no N ausea. n o V omiting. n o D iarrhea.? O PTHALMOLOGY: Negative for d enies vision issues. U ROLOGY: no D ifficulty urinating. n [...] 03/2024. * Hospitalization/Major Diagno stic Procedure[place] [facility], hypertension, CLL, DVT 03/2024. * Family History: M other: alive, breast cancer, HBP, CHF, pacemaker. 1 brother(s) . . brother with colon CA. * Social History: C URRENT TOBACCO USE S moking Status: Patient does NOT smoke. M arital Status: . Past smoking status: no. * Medications: T aking Azelastine HCl 0.1 % Solution 1 puff [...] needed Orally every 6 hrs , Taking Melatonin 3 MG Tablet 1 tablet at bedtime as needed Orally Once a day , Taking Xalatan 0.005 % Solution 1 drop into affected eye in the evening Ophthalmic Once a day , Taking Konsyl Original Daily Fiber , Taking Bethanechol Chloride 10 MG Tablet 1 tablet 1 hour before or 2 hours after meals Orally Three times a day , Taking Donepezil HCl 5 MG Tablet 1 tablet at bedtime Orally Once a day , Taking Doxazosin Mesylate 1 MG Tablet 1 tablet Orally Once a day , Taking Keppra 750 MG Tablet 1 tablet Orally every 12 hrs , Taking Cetirizine HCl 10 MG Tablet Chewable 1 tablet Orally Once a day , Taking traZODone HCl 50 MG Tablet 1 tablet at bedtime as needed Orally Once a day , Taking amLODIPine Besylate 10 MG Tablet 1 tablet Orally Once a day , Not-Taking Lidocaine 4 % Ointment 1 application as needed Externally three times a day as needed , Not-Taking Lidocaine-Hydrocort (Perianal) 3-0.5 % Cream 1 belinda rectally 2 times a day , Not-Taking Sulfacetamide Sodium 10 % Solution 2 gtt in each affected eye qid , Discontinued Macrobid 100 MG Capsule 1 capsule with food Orally every 12 hrs , Medication List reviewed and reconciled with the patient * Allergies: N .K.D.A. Objective: * Vitals: W t:100.2, Temp:97.8, BP:122/68, HR:62, Nurse:ROD, Ht: 63, BMI:17.75. * Examination: G eneral Examination: General Appearance: S he is alert and oriented and appears in no distress. Affect is good. Weight is low but stable.. H EENT: sclera and conjunctiva clear, PERRLA, TM's normal. External canals are dry.. N desiree: s upple, no lymphadenopathy, no carotid bruits. H eart: R SR. L ungs: c lear to auscultation.?Neurologic Exam: C ranial nerves II through XII intact. Decrease in left diver assistant strength compared to right. Gait is steady with a rollator walker. E xtremities: T race edema of left foot and ankle. * Physical Examination: G ENERAL: Pain Assessment: P ain level: 1, on a scale of 0-10 (with 10 being extreme pain). F unctional Status Assessment: P atient response to question of how often physical health interferes with daily activities: . Occasionally Able to perform ADLs-including meal preparation, grocery shopping, housework, laundry, taking medications or handling finances. Cognitive Status: alert and oriented. Ambulation Status: Fully ambulatory with rollator . F all Risk Assessment: I ndependant in ambulation, adequate lighting in home. Patient has fallen or had trouble walking within the past 12 months related to CVA. D epression Screening: Jewell enies depressed mood or anxiety. Describes emotional health as: calm. B ladder Control Screening: gila rosario. Assessment: * Assessment: 1. A dult general medical examination - Z00.00 (Primary) 2 . N ontraumatic acute cerebral hemorrhage - I61.9 3 . C hronic lymphocytic leukemia - C91.10? 4. H ypertension - I10 5 . A cute deep vein thrombosis (DVT) of both lower extremities, unspecified vein - I82.403 6 . E ncounter for immunization - Z23 7 . O steopenia - M85.80 8 . B KS less than 19,adult - Z68.1 Plan: * Treatment: 2. N ontraumatic acute cerebral hemorrhage Continue Keppra Tablet, 750 MG, 1 tablet, Orally, every 12 hrs; C ontinue Donepezil HCl Tablet, 5 MG, 1 tablet at bedtime, Orally, Once a day. Notes: Follow-up with neurology 3. C hronic lymphocytic leukemia Notes: Continue follow-up with Dr. Mckeon 4. H ypertension Continue amLODIPine Besylate Tablet, 10 MG, 1 tablet, Orally, Once a day; C ontinue Doxazosin Mesylate Tablet, 1 MG, 1 tablet, Orally, Once a day. 5. A cute deep vein thrombosis (DVT) of both lower extremities, unspecified vein Notes: Anticoagulation deferred due to recent cerebral hemorrhage and thrombocytopenia * Immunizations: Prevnar (PCV20) : 0.5 mL (Route: Intramuscular) given by Bushra Rangel on Left Deltoid (Encounter for immunization) * Procedure Codes: G 0439 ANNUAL WELLNESS VST; PPS SUBSQT VST, G0444 ANNUAL DEPRESSION SCREENING 15 MIN, 1090F PRES/ABSN URINE INCON ASSESS, 3288F FALL RISK ASSESSMENT DOCD, 1170F FXNL STATUS ASSESSED, 1159F MED LIST DOCD IN RCRD, 1003F LEVEL OF ACTIVITY ASSESS, 1036F TOBACCO NON-USER, 1125F AMNT PAIN NOTED PAIN PRSNT, 4040F PNEUMOC IMM ORDER/ADMIN, G8510 NEG SCR Depression PT NOT ELIG F/U/PLN DOC, 3074F SYST BP LT 130 MM HG, 3078F DIAST BP < 80 MM HG, G8950 PREHTN/HTN BP DOC INDCD F/U DOC * Preventive Medicine: Counseling: E motional health: D iscussed ways to improve socialization. B ladder control: M ethods of controlling or managing leakage of urine discussed. E xercise: Patient advised to start, increase or maintain level of exercise/physical activity. I njury prevention: F all prevention discussed. Discussed need for cane/walker. Potential trip hazards discussed. Immunizations: P neumococcal r ecommended. I nfluenza u p to date. Screening / Special Tests: M ammogram R ecent history: 10/15/2017, negative, recommended today. C olonoscopy R ecent history:, recommended. B one mineral Density R ecent history: 10/15/2017, osteopenia, recommended. * Follow Up: 4 Months * Images: Billing Information: * Visit Code: 12544 Office Visit, Est Pt., Level 3. Modifiers: 25 * Procedure Codes: G0439 ANNUAL WELLNESS VST; PPS SUBSQT VST. G0444 ANNUAL DEPRESSION SCREENING 15 MIN. 1090F PRES/ABSN URINE INCON ASSESS. 3288F FALL RISK ASSESSMENT DOCD. 1170F FXNL STATUS ASSESSED. 1159F MED LIST DOCD IN RCRD. 1003F LEVEL OF ACTIVITY ASSESS. 1036F TOBACCO NON-USER. 1125F AMNT PAIN NOTED PAIN PRSNT. 4040F PNEUMOC IMM ORDER/ADMIN. G8510 NEG SCR Depression PT NOT ELIG F/U/PLN DOC. 3074F SYST BP LT 130 MM HG. 3078F DIAST BP < 80 MM HG. G8950 PREHTN/HTN BP DOC INDCD F/U DOC. * Electronic signature of Komal Fleming MD on 2025 at 01:07 PM EST Sign off status: Pending * Provider: Komal Fleming M.D. Date: 0 08/14/2024 Generated for Rene walls/Jarad/eTransmitting on: 01:07 PM EST History and Physical Notes * HPI (History of Present Illness) Category Sub-Category Detail Notes Category Not es Neurology She has not bee n back to for neurology follow-up as yet. She missed her appointment due to inclement weather. She continues on her antiseizure medication with no reported seizure activity. HPI Patient is here to y for Kaye returns for scheduled follow up and a Medicare Annual Wellness Visit. Physical Examination Category Sub-Category Detail Notes Section Note s GENERAL Pain Assessment: Pain level: 1, on a scale of 0-10 (with 10 being extreme pain) Functional Status Assessment: Patient response to question of how often physical health interferes with daily activities: . Occasionally Able to perform ADLs-including meal preparation, grocery shopping, housework, laundry, taking medications or handling finances. Cognitive Status: alert and oriented. Ambulation Status: Fully ambulatory with rollator Fall Risk Assessment: Independant in amb ulation, adequate lighting in home. Patient has fallen or had trouble walking within the past 12 months related to CVA Depression Screening: Denies depressed m ood or anxiety. Describes emotional health as: calm Bladder Control Screening: small problem s Examination Category Sub-Category Detail Notes Category Not es General Examination HEENT: sclera and c onjunctiva clear, PERRLA, TM's normal. External canals are dry. Heart: RSR Lungs: clear to auscultatio n Extremities: Trace edema of left foot and ankle General Appearance: She is alert and nirali ented and appears in no distress. Affect is good. Weight is low but stable. Neurologic Exam: Cranial nerves II th rough XII intact. Decrease in left diver assistant strength compared to right. Gait is steady with a rollator walker Neck: supple, no lymphaden opathy, no carotid bruits
--- OUTSIDE RECORDS SUMMARY | 2024-12-04 05:15 | XMS_ITS ---
Author Organization [facility] Address [address] [facility] [address] [place] [id number] Care Team Providers Care Asphalt Worker Name Role Phone Komal Fleming Primary Care Provider [phone] Allergies No Known Allergies Results Component Value Reference Range Notes P-Comprehensive Metabolic Pa meri (CMP) Reviewed date:12/11/2024 09:24:10 PM Interpretation:Normal Performing Lab: Notes/Report: Test performed by [facility] [address] , [address], [place] [address] Devin Hogan MD, Administration Manager CLIA: [id number] Sodium 143 135-145 mmol/L Potassium 4.3 3.5-5.3 mmol/L Chloride 106 97-108 mmol/L CO2 26 22-32 mmol/L Glucose 94 65-99 mg/dL BUN 15 8-23 mg/dL Creatinine 0.95 0.50-1.00 mg/dL Calcium 9.0 8.6-10.4 mg/dL eGFR by Creatinine 63 >59 mL/min/1.73m2 Protein 6.5 6.0-8.3 g/dL Albumin 4.3 3.5-5.3 g/dL Alkaline Phosphatase 93 35-121 IU/L ALT (SGPT) 11 <5-47 IU/L AST (SGOT) 18 <5-40 IU/L Bilirubin, Total 0.3 <0.2-1.2 mg/dL A/G Ratio 2.0 1.1-2.5 Bone density Reviewed date:12/23/2024 09:04:39 AM Interpretation: Performing Lab: Notes/Report: Mammogram Reviewed date:12/26/2024 11:17:44 AM Interpretation:Negative, annual f/u Performing Lab: Notes/Report: Negative, annual f/u result neg Mammogram Reviewed date:12/26/2024 11:17:44 AM Interpretation:Negative, annual f/u Performing Lab: Notes/Report: Negative, annual f/u result neg REASON FOR VISIT 4 month check, Needs labs, mammogram, bone density screening, & colon cancer screening Medications Medication SIG (Take, Route, Frequency, Duration) Notes Start Date End Date Status Bethanechol Chloride 10 MG 1 tablet 1 hour before or 2 hours after meals Orally Three times a day; Duration: 30 day(s) Active traZODone HCl 50 MG TAKE 1 TABLET BY REESE TH DAILY AT BEDTIME NEEDED; Duration: 90 Active Cetirizine HCl 10 MG 1 tablet Orally Onc e a day; Duration: 90 days Active Stimulant Laxative 8.6-50 MG 1 tablet as needed Orally Twice a day; Duration: 30 days 11/11/2024 Active Donepezil HCl 5 MG 1 tablet at bedtime Orally Once a day; Duration: 30 days Active Konsyl Original Daily Fiber Active Ondansetron 4 MG 1 tablet on [...] the evening Ophthalmic Once a day Active Keppra 750 MG 1 tablet Orally ever y 12 hrs Active amLODIPine Besylate 10 MG 1 tablet Orall y Once a day Active Doxazosin Mesylate 1 MG 1 tablet Orally Once a day Active Sulfacetamide Sodium 10 % 2 gtt in each affected eye qid 05/17/2020 Not-Taking Azelastine HCl 0.1 % 1 puff in each nost ril Nasally Twice a day; Duration: 30 day(s) Active Lidocaine 4 % 1 application as nee ded Externally three times a day as needed 01/08/2024 Not-Taking Lidocaine-Hydrocort (Perianal) 3-0.5 % 1 belinda rectally 2 times a day 04/05/2021 Not-Taking Melatonin 3 MG TAKE 1 TABLET BY REESE TH EVERY NIGHT AT BEDTIME; Duration: 60 Active Vital Signs Weight 104.2 lbs 12/04/2024 Blood pressure systolic 118 mm Hg 12/05/19 25 Blood pressure diastolic 70 mm Hg 025 Heart Rate 67 /min 12/04/2024 Height 63 in 12/04/2024 BMI 18.46 kg/m2 12/04/2024 Encounters Encounter Location Date Provider Diagnosis [facility] [address] [facility] [address] [place] [id number] 12/04/2024 Komal Fleming Hypertension I10 ; Chronic lymphocytic leukemia C91.10 ; Nontraumatic acute cerebral hemorrhage I61.9 ; Osteopenia M85.80 ; Screening for breast cancer Z12.39 and BMI less than 19,adult Z68.1 Assessments Encounter Date Diagnosis (ICD Code) Assessment Notes Treatment Notes Treatment Clinical Notes Section Notes 12/04/2024 Hypertension (ICD-10 - I10) 12/04/2024 Chronic lymphocytic leukemia (ICD-10 - C91.10) 12/04/2024 Nontraumatic acute cerebral hemorrhage (ICD-10 - I61.9) 12/04/2024 Osteopenia (ICD-10 - M85.80) 12/04/2024 Screening for breast cancer (ICD-10 - Z12.39) 12/04/2024 BMI less than 19,adult (ICD-10 - Z68.1) Plan Of Treatment Medication Medication Name Sig Start Date Stop Date Notes Keppra 750 MG 1 tablet Orally every 12 hrs amLODIPine Besylate 10 MG 1 tablet Orally Once a day Doxazosin Mesylate 1 MG 1 tablet Orally Once a day Next Appt Details Follow Up: 6 Months, Reason: Progress Notes * OPAL MONET MDOB:1949 (75 yo F)Acc No.[id number]:12/04/2024 Progress Notes Patient: Stella RIKKIBell OPAL Davis Provider: Komal Fleming M.D. :1950 A ge:74 Y S ex:Female Date:12/04/2024 Address:[address] [place] [address] [id number] Subjective: * Chief Complaints: * 1 . 4 month check. 2. Needs labs, mammogram, bone density screening, & colon cancer screening. * HPI: H PI: 74 year old female presents with c/o Patient is here today for?Pt is here today for a 4 month check up. Pt sts she is doing well and has no concerns at this time. * ROS: D ERMATOLOGY: no R edson. [...] 03/2024. * Hospitalization/Major Diagno stic Procedure: [place] [facility] [place] for right cerebral hemorrhagic stroke, hypertension, CLL, [...] needed Orally every 6 hrs , Taking Xalatan 0.005 % Solution 1 drop into affected eye in the evening Ophthalmic Once a day , Taking Konsyl Original Daily Fiber , Taking Bethanechol Chloride 10 MG Tablet 1 tablet 1 hour before or 2 hours after meals Orally Three times a day , Taking Cetirizine HCl 10 MG Tablet Chewable 1 tablet Orally Once a day , Taking traZODone HCl 50 MG Tablet TAKE 1 TABLET BY MOUTH DAILY AT BEDTIME NEEDED , Taking Stimulant Laxative 8.6-50 MG Tablet 1 tablet as needed Orally Twice a day , Taking amLODIPine Besylate 10 MG Tablet 1 tablet Orally Once a day , Taking Keppra 750 MG Tablet 1 tablet Orally every 12 hrs , Taking Doxazosin Mesylate 1 MG Tablet 1 tablet Orally Once a day , Taking Donepezil HCl 5 MG Tablet 1 tablet at bedtime Orally Once a day , Taking Melatonin 3 MG Tablet TAKE 1 TABLET BY MOUTH EVERY NIGHT AT BEDTIME , Not-Taking Lidocaine 4 % Ointment 1 application as needed Externally three times a day as needed , Not-Taking Lidocaine-Hydrocort (Perianal) 3-0.5 % Cream 1 belinda rectally 2 times a day , Not-Taking Sulfacetamide Sodium 10 % Solution 2 gtt in each affected eye qid , Medication List reviewed and reconciled with the patient * Allergies: N .K.D.A. Objective: * Vitals: W t: 104.2, Temp: 98.4, BP: 118/70, HR: 67, O2 Sat: 99% on RA, Nurse: minerva, Ht: 63, BMI:18.46. * Examination: G eneral Examination: General Appearance: S he is alert and oriented and appears in no distress. Weight gain noted. N desiree: s upple, no lymphadenopathy, no carotid bruits.?Heart: R SR. L ungs: c lear to auscultation. N eurologic Exam: C ranial nerves II through XII intact. Gait is steady with rollator today. E xtremities: n o leg edema. Assessment: * Assessment: 1. H ypertension - I10 (Primary) 2 . C hronic lymphocytic leukemia - C91.10? 3. N ontraumatic acute cerebral hemorrhage - I61.9 4 . O steopenia - M85.80 5 . S creening for breast cancer - Z12.39 6 .?BMI less than 19,adult - Z68.1 Plan: * Treatment: Value Reference Range A /G Ratio 2.0 1.1-2.5 - * A lbumin 4.3 3.5-5.3 - g/dL * A lkaline Phosphatase 93 35-121 - IU/L * A LT (SGPT) 11 <5-47 - IU/L * A ST (SGOT) 18 <5-40 - IU/L * B ilirubin, Total 0.3 <0.2-1.2 - mg/dL * B UN 15 8-23 - mg/dL * C alcium 9.0 8.6-10.4 - mg/dL * C hloride 106 97-108 - mmol/L * C O2 26 22-32 - mmol/L * C reatinine 0.95 0.50-1.00 - mg/dL * G lucose 94 65-99 - mg/dL * P otassium 4.3 3.5-5.3 - mmol/L * S odium 143 135-145 - mmol/L * P rotein 6.5 6.0-8.3 - g/dL * e GFR by Creatinine 63 >59 - mL/min/1.73m2 * Komal Fleming 12/11/2024 9 :24:01 PM > See phone encounter 2.?Nontraumatic acute cerebral hemorrhage? Continue Keppra Tablet, 750 MG, 1 tablet, Orally, every 12 hrs.??3.?Osteopenia?Imaging: Bone density (Performed Date - 12/19/2024)* Bertha Pollock 12/04/2024 10:5 3:16 AM > faxed to [facility] Komal Kate 12/23/2024 09:04:22 AM EDT > See phone encounter 4.?Screening for breast cancer?Imaging: Mammogram (Performed Date - 12/19/2024)?Negative, annual f/u* Value Reference Range r esult neg * Bertha Pollock 12/04/2024 10:5 3:06 AM > faxed to [facility] Evonne Pete 12/26/2024 11:17:38 AM EDT >pt informed * Procedure Codes: G 2211 Complex e/m visit add on, 3074F SYST BP LT 130 MM HG, 3078F DIAST BP < 80 MM HG * Follow Up: 6 Months * Images: Drawin12/04/24 [facility] Billing Information: * Visit Code: 85087 Office Visit, Est Pt., Level 4. * Procedure Codes: G2211 Complex e/m visit add on. 3074F SYST BP LT 130 MM HG. 3078F DIAST BP < 80 MM HG. * Electronic signature of Komal Fleming MD on 2025 at 01:07 PM EST Sign off status: Pending * Provider: Komal Fleming M.D. Date: 0 12/04/2024 Generated for Rene walls/Jarad/Ushasmitting on: 1 01:07 PM EST History and Physical Notes * HPI (History of Present Illness) Category Sub-Category Detail Notes Category Not es HPI Patient is here today for Pt is here today for a 4 month check up. Pt sts she is doing well and has no concerns at this time Examination Category Sub-Category Detail Notes Category Not es General Examination HEENT: Heart: RSR Lungs: clear to auscultatio n Extremities: no leg edema General Appearance: She is alert and nirali ented and appears in no distress. Weight gain noted Neurologic Exam: Cranial nerves II th rough XII intact. Gait is steady with rollator today Neck: supple, no lymphaden opathy, no carotid bruits
--- OUTSIDE RECORDS SUMMARY | 2025-01-06 09:30 | XMS_ITS ---
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 Gr. 1.020 Ketone trace Bili neg Gluc neg TEN-UTI panel Reviewed date:01/13/2025 12:50:19 PM Interpretation: Performing Lab: Notes/Report: REASON FOR VISIT stomach issues Medications Medication SIG (Take, Route, Frequency, Duration) Notes Start Date End Date Status Acetaminophen 325 MG 1 capsule as needed Orally every 6 hrs Active Ondansetron 4 MG 1 tablet on the tong ue and allow to dissolve Orally Once a day; Duration: 30 day(s) Active Docusate Sodium 50 MG 1 capsule as neede d Orally Once a day; Duration: 30 day(s) Active Ciprofloxacin HCl 500 MG 1 tablet Orally every 12 hrs 01/06/2025 Active Azelastine HCl 0.1 % 1 puff in each nost ril Nasally Twice a day; Duration: 30 day(s) Active Lidocaine-Hydrocort (Perianal) 3-0.5 % 1 belinda rectally 2 times a day 04/05/2021 Not-Taking amLODIPine Besylate 10 MG 1 tablet Orall y Once a day; Duration: 30 days Active Lidocaine 4 % 1 application as nee ded Externally three times a day as needed 01/08/2024 Not-Taking Keppra 750 MG 1 tablet Orally ever y 12 hrs; Duration: 90 days Active Sulfacetamide Sodium 10 % 2 gtt in each affected eye qid 05/17/2020 Not-Taking Doxazosin Mesylate 1 MG 1 tablet Orally Once a day; Duration: 90 days Active Fosamax 70 MG 1 tablet 30 minutes before the first food, beverage or medicine of the day with plain water Orally once a week 12/23/2024 Active Citracal Calcium +D3 600-40-500 MG-MG-UNIT 1 tablet Orally twice a day; Duration: 30 days 12/23/2024 Active Donepezil HCl 5 MG 1 tablet at bedtime Orally Once a day; Duration: 30 days Active Melatonin 3 MG TAKE 1 TABLET BY REESE TH EVERY NIGHT AT BEDTIME; Duration: 60 Active Cetirizine HCl 10 MG 1 tablet Orally Onc e a day; Duration: 90 days Active traZODone HCl 50 MG TAKE 1 TABLET BY REESE TH DAILY AT BEDTIME NEEDED; Duration: 90 Active Konsyl Original Daily Fiber Active Bethanechol Chloride 10 MG 1 tablet 1 hour before or 2 hours after meals Orally Three times a day; Duration: 30 day(s) Active Stimulant Laxative 8.6-50 MG 1 tablet as needed Orally Twice a day; Duration: 30 days 11/11/2024 Active Xalatan 0.005 % 1 drop into affected eye in the evening Ophthalmic Once a day Active Vital Signs Weight 107 lbs 01/06/2025 Blood pressure systolic 120 mm Hg 01/07/20 25 Blood pressure diastolic 62 mm Hg 025 Heart Rate 70 /min 01/06/2025 Height 63 in 01/06/2025 BMI 18.95 kg/m2 01/06/2025 Encounters Encounter Location Date Provider Diagnosis [facility] [address] [facility] [address] [place], [place] [id number] 01/06/2025 Komal Fleming UTI (lower urinary tract infection) N39.0 Assessments Encounter Date Diagnosis (ICD Code) Assessment Notes Treatment Notes Treatment Clinical Notes Section Notes 01/06/2025 UTI (lower urinary tract infection) (ICD-10 - N39.0) Plan Of Treatment Medication Medication Name Sig Start Date Stop Date Notes Ciprofloxacin HCl 500 MG 1 tablet Orally every 12 hrs 12/15 Next Appt Details Follow Up: 2 - 3 Days,Komal burgos: Progress Notes * OPAL MONET MDOB:1949 (75 yo F)Acc No.[id number]:01/06/2025 Progress Notes Patient: OPAL MANN Provider: Komal Fleming M.D. :1950 A ge:74 Y S ex:Female Date:01/06/2025 Address:[address] [place] [address] [id number] Subjective: * Chief Complaints: * 1 . Stomach issues. * HPI: U rology: She presents with a 4-day history of low abdominal pain and pressure with some dysuria. 3 days ago she noticed some blood on her toilet paper. No fever. No change in her bowel habits. Appetite has been good. * ROS: C ARDIOLOGY: no D izziness. n o C hest pain. D ERMATOLOGY: no R edson. n o H antwan. U ROLOGY: no D ifficulty urinating. n [...] 03/2024. * Hospitalization/Major Diagno stic [place] [facility] [place], hypertension, CLL, DVT 03/2024. * Family History: M other: alive, breast cancer, HBP, CHF, pacemaker. 1 brother(s) . . brother with colon CA. * Social History: C URRENT TOBACCO USE: No . M arital Status: . Past smoking status: [...] needed Orally Twice a day , Taking Donepezil HCl 5 MG Tablet 1 tablet at bedtime Orally Once a day , Taking Melatonin 3 MG Tablet TAKE 1 TABLET BY MOUTH EVERY NIGHT AT BEDTIME , Taking Fosamax 70 MG Tablet 1 tablet 30 minutes before the first food, beverage or medicine of the day with plain water Orally once a week , Taking Citracal Calcium +D3 600-40-500 MG-MG-UNIT Tablet Extended Release 24 Hour 1 tablet Orally twice a day , Taking Doxazosin Mesylate 1 MG Tablet 1 tablet Orally Once a day , Taking Keppra 750 MG Tablet 1 tablet Orally every 12 hrs , Taking amLODIPine Besylate 10 MG Tablet [...] N .K.D.A. Objective: * Vitals: W t: 107, Temp: 98.2, BP: 120/62, HR: 70, Nurse: linwood, Ht: 63, BMI:18.95. * Examination: G eneral Examination: Abdomen: m oderate suprapubic tenderness, no CVA tenderness. Assessment: * Assessment: 1. U TI (lower urinary tract infection) - N39.0 (Primary) Plan: * Treatment: Value Reference Range C olor/Clarity yellow/clear * L euk trace * N itrite neg * U robili 3.2 * P rotein 1+ * p H 6.0 * B lood trace-intact * S p. Gr. 1.020 * K etone trace * B may neg * G quan neg * Shelley Lanza 01/06/2025 02:47: 33 PM EDT > Provider reviewed results while patient in office. ?LAB: TEN-UTI panel (Collection Date & Time - 01/06/2025)* Kareen Fonseca 01/13/2025 12:50 :14 PM EDT > see duplicate order * Procedure Codes: G 2211 Complex e/[place], [address] Urinalysis, no micro, 1036F TOBACCO NON- USER, G8783 BP SCR PRFRM RCMDD DEFIND SCR INTVL, G8752 MOST RECENT SYSTOLIC BP < 140MM HG, G8754 MOST RECENT DIASTOLIC BP < 90MM HG * Follow Up: 2 - 3 Days,prn * Images: Billing Information: * Visit Code: 48201 Office Visit, Est Pt., Level 3. * Procedure Codes: G2211 Complex e/[place]. [address] Urinalysis, no micro. 1036F TOBACCO NON-USER. G8783 BP SCR PRFRM RCMDD DEFIND SCR INTVL. G8752 MOST RECENT SYSTOLIC BP < 140MM HG. G8754 MOST RECENT DIASTOLIC BP < 90MM HG. * Electronic signature of Komal Fleming MD on 2025 at 01:07 PM EST Sign off status: Pending * Provider: Komal Fleming M.D. Date: 0 01/06/2025 Generated for Rene walls/Jarad/eTransmitting on: 01:07 PM EST History and Physical Notes * Examination Category Sub-Category Detail Notes Category Not es General Examination Abdomen: moderate sup rapubic tenderness, no CVA tenderness
--- OUTSIDE RECORDS SUMMARY | 2025-04-16 05:35 | XMS_ITS ---
Author Organization [facility] Address [address] [facility] [address] [place] [id number] Care Team Providers Care Thumb Sewer Name Role Phone Komal Fleming Primary Care Provider REASON FOR VISIT flu shot Medications Medication SIG (Take, Route, Frequency, Duration) Notes Start Date End Date Status Doxazosin Mesylate 1 MG 1 tablet Orally Once a day; Duration: 90 days Active Melatonin 3 MG 1 tablet at bedtime as needed Orally Once a day; Duration: 90 days Active Sulfacetamide Sodium 10 % 2 gtt in each affected eye qid 05/17/2020 Not-Taking Lidocaine-Hydrocort (Perianal) 3-0.5 % 1 belinda rectally 2 times a day 04/05/2021 Not-Taking Lidocaine 4 % 1 application as nee ded Externally three times a day as needed 01/08/2024 Not-Taking levETIRAcetam 750 MG TAKE 1 TABLET BY [facility] EVERY 12 HOURS; Duration: 90 Active traZODone HCl 50 MG 1 tablet at bedtime as needed Orally Once a day; Duration: 90 days Active Donepezil HCl 5 MG 1 tablet at bedtime Orally Once a day; Duration: 90 days Active Linezolid 600 MG 1 tablet Orally tw01/13/2025 Active amLODIPine Besylate 10 MG 1 tablet Orall y Once a day; Duration: 30 days Active Bethanechol Chloride 10 MG 1 tablet 1 hour before or 2 hours after meals Orally Three times a day; Duration: 30 day(s) Active Citracal Calcium +D3 600-40-500 MG-MG-UNIT 1 tablet Orally twice a day; Duration: 30 days 12/23/2024 Active Fosamax 70 MG 1 tablet 30 minutes before the first food, beverage or medicine of the day with plain water Orally once a week 12/23/2024 Active Stimulant Laxative 8.6-50 MG 1 tablet as needed Orally Twice a day; Duration: 30 days 11/11/2024 Active Cetirizine HCl 10 MG 1 tablet Orally Onc e a day; Duration: 90 days Active Konsyl Original Daily Fiber Active Xalatan 0.005 % 1 drop into affected eye in the evening Ophthalmic Once a day Active Acetaminophen 325 MG 1 capsule as needed Orally every 6 hrs Active Docusate Sodium 50 MG 1 capsule as neede d Orally Once a day; Duration: 30 day(s) Active Ondansetron 4 MG 1 tablet on the tong ue and allow to dissolve Orally Once a day; Duration: 30 day(s) Active Azelastine HCl 0.1 % 1 puff in each nost ril Nasally Twice a day; Duration: 30 day(s) Active Immunizations Vaccine Route Administration Date Status Comme nts Fluzone High Dose (65yr and older) IM Intramuscular 04/16/2025 Administered Encounters Encounter Location Date Provider Diagnosis [facility] [address] [facility] [address] [place] [id number] 04/16/2025 Komal Fleming Encounter for immunization Z23 Assessments Encounter Date Diagnosis (ICD Code) Assessment Notes Treatment Notes Treatment Clinical Notes Section Notes 04/16/2025 Encounter for immunization (ICD-10 - Z23) Plan Of Treatment No Information Progress Notes * OPAL MONET MDOB:1949 (75 yo F)Acc No.[id number]:04/16/2025 Patient: Stella OPAL JESSICA Provider: Komal Fleming M.D. :1950 A ge:74 Y S ex:Female Date:04/16/2025 Address:[address] [place] [address] [id number] Subjective: * Chief Complaints: * 1 . Flu shot. * Medical History: * Medications: T aking Azelastine HCl 0.1 [...] tablet Orally Once a day , Taking Stimulant Laxative 8.6-50 MG Tablet 1 tablet as needed Orally Twice a day , Taking Fosamax 70 MG Tablet 1 tablet 30 minutes before the first food, beverage or medicine of the day with plain water Orally once a week , Taking Citracal Calcium +D3 600-40-500 MG-MG-UNIT Tablet Extended Release 24 Hour 1 tablet Orally twice a day , Taking amLODIPine Besylate 10 MG Tablet 1 tablet Orally Once a day , Taking Linezolid 600 MG Tablet 1 tablet Orally twice a day , Taking Donepezil HCl 5 MG Tablet 1 tablet at bedtime Orally Once a day , Taking traZODone HCl 50 MG Tablet 1 tablet at bedtime as needed Orally Once a day , Taking levETIRAcetam 750 MG Tablet TAKE 1 TABLET BY MOUTH EVERY 12 HOURS , Taking Melatonin 3 MG Tablet 1 tablet at bedtime as needed Orally Once a day , Taking Doxazosin [...] List reviewed and reconciled with the patient Objective: * Vitals: Assessment: * Assessment: 1. E ncounter for immunization - Z23 (Primary) Plan: * Treatment: * Immunizations: Fluzone High Dose (65yr and older) : 0.5 mL (Route: Intramuscular) given by RHONDA Couch on Left Deltoid (Encounter for immunization) * Images: Billing Information: * Visit Code: * Procedure Codes: * Electronic signature of Komal Fleming MD on 2025 at 01:07 PM EST Sign off status: Pending * Provider: Komal Fleming M.D. Date: Generated for Rene walls/Jarad/Almita on: 01:07 PM EST
--- OUTSIDE RECORDS SUMMARY | 2025-06-04 08:30 | XMS_ITS ---
[facility] Address [address] [facility] Suite [place] [id number] Care Team Providers Care Outdoor Pursuits Instructor Name Role Phone Komal Fleming Primary Care Provider Allergies No Known Allergies REASON FOR VISIT 6 month f/u, Needs labs & colon cancer screening Medications Medication SIG (Take, Route, Frequency, Duration) Notes Start Date End Date Status amLODIPine Besylate 10 MG 1 tablet Orall y Once a day Active Doxazosin Mesylate 1 MG 1 tablet Orally Once a day Active Keppra 750 MG 1 tablet Orally ever y 12 hrs Active levETIRAcetam 750 MG 1 tablet Orally devika ry 12 hrs; Duration: 90 days 04/20/2025 Active Doxazosin Mesylate 1 MG 1 tablet Orally Once a day; Duration: 90 days Active Donepezil HCl 5 MG 1 tablet at bedtime Orally Once a day; Duration: 90 days Active traZODone HCl 50 MG 1 tablet at bedtime as needed Orally Once a day; Duration: 90 days Active Citracal Calcium +D3 600-40-500 MG-MG-UNIT 1 tablet Orally twice a day; Duration: 30 days 12/23/2024 Active Fosamax 70 MG 1 tablet 30 minutes before the first food, beverage or medicine of the day with plain water Orally once a week 12/23/2024 Active amLODIPine Besylate 10 MG 1 tablet Orall y Once a day; Duration: 30 days Active Melatonin 3 MG 1 tablet at bedtime as needed Orally Once a day; Duration: 90 days Active Cetirizine HCl 10 MG 1 tablet Orally Onc e a day; Duration: 90 days Active Azelastine HCl 0.1 % 1 puff in each nost ril Nasally Twice a day; Duration: 30 day(s) Active Bethanechol Chloride 10 MG 1 tablet 1 ho ur before or 2 hours after meals Orally Three times a day; Duration: 30 day(s) Active Konsyl Original Daily Fiber Active Xalatan 0.005 % 1 drop into affected eye in the evening Ophthalmic Once a day Active Problems Problem Type SNOMED Code ICD Code Onset Dates Problem Status W/U Status Risk Notes Problem Localized amyloidosis (75237562) 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 Vital Signs Weight 111.0 lbs 06/04/2025 Blood pressure systolic 122 mm Hg 06/04/20 25 Blood pressure diastolic 70 mm Hg 025 Heart Rate 75 /min 06/04/2025 Height 63 in 06/04/2025 BMI 19.66 kg/m2 06/04/2025 Encounters Encounter Location Date Provider Diagnosis [facility] [address] [facility] [address] [place] [id number] 06/04/2025 Komal Fleming Hypertension I10 ; Chronic lymphocytic leukemia C91.10 ; Nontraumatic acute cerebral hemorrhage I61.9 ; Osteopenia M85.80 ; 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 and Body mass index (BMI) of 19.0 to 19.9 in adult Z68.1 Assessments Encounter Date Diagnosis (ICD Code) Assessment Notes Treatment Notes Treatment Clinical Notes Section Notes 06/04/2025 Hypertension (ICD-10 - I10) 06/04/2025 Chronic lymphocytic leukemia (ICD-10 - C91.10) 06/04/2025 Nontraumatic acute cerebral hemorrhage (ICD-10 - I61.9) 06/04/2025 Osteopenia (ICD-10 - M85.80) 06/04/2025 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 :1950 A ge:74 Y S ex:Female Date:06/04/2025 Address:[address] [place] [address] [id number] Subjective: * Chief Complaints: * 1 . 6 month f/u. 2. Needs labs & colon cancer screening. * HPI: C ardiology: Shi comes in for follow-up on her hypertension. She does not monitor her blood pressure at home. Denies : Chest Pain. D enies : Short of Breath. D enies : Palpitations. D enies : Leg Edema. G astroenterology: She has met with GI and is scheduled for colonoscopy in July but they are requiring cardiac clearance before proceeding. She has to be scheduled with Dr. Anand. She was told she had a heart murmur. H ematology: She continues to follow with Dr. Mckeon regarding her CLL. Recent lab work including CBC and CMP showed stable counts with normal renal function and electrolytes. * ROS: D ERMATOLOGY: no R edson. [...] 03/2024. * Hospitalization/Major Diagno stic Procedure: [facility] for right cerebral hemorrhagic stroke, hypertension, CLL, [...] nostril Nasally Twice a day , Taking Xalatan 0.005 % [...] tablet Orally Once a day , Taking Fosamax 70 MG Tablet 1 tablet 30 minutes before the first food, beverage or medicine of the day with plain water Orally once a week , Taking Citracal Calcium +D3 600-40-500 MG-MG-UNIT Tablet Extended Release 24 Hour 1 tablet Orally twice a day , Taking amLODIPine Besylate 10 MG Tablet 1 tablet Orally Once a day , Taking Melatonin 3 MG Tablet 1 tablet at bedtime as needed Orally Once a day , Taking Donepezil HCl 5 MG Tablet 1 tablet at bedtime Orally Once a day , Taking Doxazosin Mesylate 1 MG Tablet 1 tablet Orally Once a day , Taking levETIRAcetam 750 MG Tablet 1 tablet Orally every 12 hrs , Taking traZODone HCl 50 MG Tablet 1 tablet at bedtime as needed Orally Once a day , Discontinued Lidocaine 4 % Ointment 1 application as needed Externally three times a day as needed , Discontinued Lidocaine-Hydrocort (Perianal) 3-0.5 % Cream 1 belinda rectally 2 times a day , Discontinued Sulfacetamide Sodium 10 % Solution 2 gtt in each affected eye qid , Medication List reviewed and reconciled with the patient * Allergies: N .K.D.A. Objective: * Vitals: W t: 111.0, Temp: 98.2, BP: 122/70, HR: 75, Nurse: pe, Ht: 63, BMI:19.66. * Examination: G eneral Examination: General Appearance: S he is alert and oriented and appears in no distress. Weight gain noted. N desiree: s upple, no lymphadenopathy, no carotid bruits.?Heart: R SR. I do not appreciate a definite murmur. L ungs: c lear to auscultation. N eurologic Exam: C ranial nerves II through XII intact. Gait is steady with rollator today. E xtremities: n o leg edema. ? Assessment: * Assessment: 1. H ypertension - I10 (Primary) 2 . C hronic lymphocytic leukemia - C91.10? 3. N ontraumatic acute cerebral hemorrhage - I61.9 4 . O steopenia - M85.80 5 . O rgan-limited amyloidosis - E85.4 6 . Body mass index (BMI) of 19.0 to 19.9 in adult - Z68.1 Plan: * Treatment: 2. N ontraumatic acute cerebral hemorrhage Continue Keppra Tablet, 750 MG, 1 tablet, Orally, every 12 hrs. * Procedure Codes: G 2211 Complex e/m visit add on, G8950 PREHTN/HTN BP DOC INDCD F/U DOC, G8752 MOST RECENT SYSTOLIC BP < 140MM HG, G8754 MOST RECENT DIASTOLIC BP < 90MM HG, 3074F SYST BP LT 130 MM HG, 3078F DIAST BP < 80 MM HG * Follow Up: 6 Months * Images: Billing Information: * Visit Code: 20991 Office Visit, Est Pt., Level 3. * Procedure Codes: G2211 Complex e/m visit add on. G8950 PREHTN/HTN BP DOC INDCD F/U DOC. G8752 MOST RECENT SYSTOLIC BP < 140MM HG. G8754 MOST RECENT DIASTOLIC BP < 90MM HG. 3074F SYST BP LT 130 MM HG. 3078F DIAST BP < 80 MM HG. * Electronic signature of Komal Fleming MD on 2025 at 01:08 PM EST Sign off status: Pending * Provider: Komal Fleming M.D. Date: 08/04/2024 Generated for Rene walls/Jarad/Hyunitting on: 01:08 PM EST History and Physical Notes * HPI (History of Present Illness) Category Sub-Category Detail Notes Category Not es Cardiology Short of Breath Chest Pain Palpitations Leg Edema Examination Category Sub-Category Detail Notes Category Not es General Examination HEENT: Heart: RSR. I do not apprec iate a definite murmur Lungs: clear to auscultatio n Extremities: no leg edema General Appearance: She is alert and nirali ented and appears in no distress. Weight gain noted Neurologic Exam: Cranial nerves II th rough XII intact. Gait is steady with rollator today Neck: supple, no lymphaden opathy, no carotid bruits
--- NOTE | 2025-07-13 13:00 | CA_ITS ---
APPROVED REPORT EXAM: Comprehensive 2D, Doppler, and color-flow Echocardiogram Plating And Point Assembly Supervisor: Heather Lewis RDCS Ht: 5 ft 1 in Wt: 112lbs BSA: 1.48 BP: 136/68 mmHg Indications: PRE OP CHOLONOSCOPY M-Mode Dimensions RVDd 1.07 cm (0.9-2.6) LA Diam 3.26 cm (1.9-4.0) LVDd 4.73 cm (3.5-5.7) LVDs 3.09 cm (3.5-5.7) IVSd 0.60 cm (0.6-1.1) PWd 0.60 cm (0.6-1.1) EF (Teich) 63.80% FS 34.70% EDV (Teich) 103.90 mL TAPSE 2.76 (<1.7) ESV (Teich) 37.60 mL LV Diastology E Decel Time 163 (160-240 msec) E/A Ratio 1.3 Mitral Valve MV E Max Ángel. 87.0 (40-130 cm/s) MV A Velocity 65.0 (40-130 cm/s) E/A Ratio 1.34 MV PHT 48.0 ms Tricuspid Valve TR P. Velocity 256.00 cm/s RAP Estimate 10.00 mmHg RVSP 36.30 mmHg Left Ventricle The left ventricle is normal size. Left ventricular systolic function is normal. The left ventricular ejection fraction is within the normal range. There is increased left ventricular wall thickness. There is normal LV segmental wall motion. The left ventricular diastolic function is normal. LVEF is 55% Right Ventricle The right ventricle is mildly dilated. The right ventricular systolic function is normal. Atria Left atrium is mildly dilated. Right atrium is mildly dilated. There is no color Doppler evidence of interatrial shunt. Aortic Valve The aortic valve is mildly thickened. There is no hemodynamically significant aortic valvular stenosis. Trace aortic regurgitation is present. Mitral Valve The mitral valve is normal in structure. No evidence of mitral valve stenosis. Mild mitral regurgitation is present. Tricuspid Valve The tricuspid valve leaflets are thin and pliable. Mild tricuspid regurgitation. RVSP is 25-30 mmHg. Pulmonic Valve The pulmonary valve is grossly normal in structure. Mild pulmonic valve regurgitation is present. Great Vessels The aortic root is normal in size. IVC is normal in size and collapses >50% with inspiration. Pericardium There is no pericardial effusion. Other Information Study Quality: Fair Conclusion Normal biventricular systolic function. Mild RV dilation. Mild biatrial dilation. Mild MR, mild TR, mild PI. Electronically signed by : Enid Olivera MD 07/20/2025 01:11:06
--- OUTSIDE RECORDS SUMMARY | 2025-07-13 13:08 | XMS_ITS | Clinical Summary ---
Author Organization [facility] Address [address] [facility] [place] [address] Phone Care Team Providers Care Target Protection Specialist Name Role Phone Unavailable Primary Care Provider [...] Orientation Not on file Plan of Treatment Health Maintenance Due Date [...] Density Screening 2015 COVID-19 Vaccine (1 - 2024- season) 2025 Influenza Vaccine (#1) 2025 2, 04/05/2021, 04/15/2020, [...] [place] [address]
--- OUTSIDE RECORDS SUMMARY | 2025-07-13 13:08 | XMS_ITS | Clinical Summary ---
Author Organization [facility] Address [address] [place] [address] Care Team Providers Care Office Administrator Name Role Phone Unavailable Primary Care Provider [...] therelease of HIV test results or diagnoses. [id number] Social History Tobacco Use Types Packs/Day Years Used Date Smoking Tobacco: Never Assessed Comments Unknown Sex and Gender Information Value Date Recorded Sex Assigned at Not on file Legal Sex Female 4:12 PM EST Gender Identity Not on file Sexual Orientation Not on file Plan of Treatment Not on file Insurance [place] [id number] MEDICARE A AND B [facility]
--- OUTSIDE RECORDS SUMMARY | 2025-07-13 13:08 | XMS_ITS | Encounter Summary ---
Author Organization [facility] Address [address] [place] [address] Care Team Providers Care Marine Service Manager Name Role Phone Pcp, No Primary Care Provider Tye Oshea MD Primary Care Provider [phone] Encounter Details Date Type Department Care Team (Late st Contact Info) Description 03/24/2024 Lab Requisition [facility] [address] [place] [address] Blake Metzger MD [address] [facility] [address] [place] [phone] Encounter for general adult medical examination without [...] place to sleep or slept in a alf (including now)? No 03/20/2024 Utilities Answer Date Recorded In the past 12 months has th e [employer], gas, oil, or water company threatened to [...] ERAL ORDERABLES Final Result [facility] [address] [place] [address] documented in this encounter Visit Diagnoses Diagnosis [...] documented as of this encounter Care Teams Marine Service Manager Relationship Specialty Start Date End Date Pcp, Yue [address] [place] [id number] PCP - General Family Medicine 03/19/24 06/09/24 Tye Fleming MD [facility] [id number] PCP - General 06/10/24 documented as of this encounter
--- OUTSIDE RECORDS SUMMARY | 2025-07-13 13:08 | XMS_ITS | Patient Health Record ---
Author Organization [facility] Address [address] [facility] [address] [place] [phone] Care Team Providers Care Midwife Name Role Phone Komal Fleming Primary Care Provider Allergies No Known Allergies Results Component Value Reference Range Notes P-Comprehensive Metabolic Pa meri (CMP) Reviewed date:12/11/2024 09:24:10 PM Interpretation:Normal Performing Lab: Notes/Report: Test performed by [facility] [address] , [address], [place] [address] Devin Hogan MD, Dance Historian CLIA: [id number] Sodium 143 135-145 mmol/L Potassium 4.3 3.5-5.3 [...] Lab: Notes/Report: Negative, annual f/u result neg Urinalysis - Inhouse Reviewed date:01/06/2025 02:56:43 PM Interpretation: Performing Lab: Notes/Report: Color/Clarity yellow/clear Leuk trace Nitrite neg Urobili 3.2 Protein 1+ pH 6.0 Blood trace-intact Sp. Gr. 1.020 Ketone trace Bili neg Gluc neg TEN-UTI panel Reviewed date:01/13/2025 12:50:19 PM Interpretation: Performing Lab: Notes/Report: Medications Medication SIG (Take, Route, Frequency, Duration) Notes Start Date End Date Status Melatonin 3 MG 1 tablet at bedtime [...] tablet Orall y Once a day; Duration: 90 days Active Senna S 8.6-50 MG 1 tablet as needed Orally Twice a day prn 06/16/2025 Active Doxazosin Mesylate 1 MG 1 tablet Orally Once a day Active Keppra 750 MG 1 tablet Orally ever y 12 hrs Active Fiber 500 MG 1 cap Orally daily 06/16/2025 Active Azelastine HCl 0.1 % 1 puff in each nost ril Nasally Twice a day; Duration: 30 day(s) Active levETIRAcetam 750 MG 1 tablet Orally devika ry 12 hrs; Duration: 90 days 04/20/2025 Active Doxazosin Mesylate 1 MG 1 tablet Orally Once a day; Duration: 90 days Active Donepezil HCl 5 MG 1 tablet at bedtime Orally Once a day; Duration: 90 days Active Cetirizine HCl 10 MG 1 tablet Orally Onc e a day; Duration: 90 days Active Bethanechol Chloride 10 MG 1 tablet 1 ho ur before or 2 hours after meals Orally Three times a day; Duration: 30 day(s) Active Konsyl Original Daily Fiber Active Xalatan 0.005 % 1 drop into affected eye in the evening Ophthalmic Once a day Active traZODone HCl 50 MG 1 tablet at bedtime as needed Orally Once a day; Duration: 90 days Active Immunizations Vaccine Route Administration Date Status Comme nts Fluzone High Dose (65yr and older) IM Intramuscular 04/27/2016 Administered Fluzone High Dose (65yr and older) IM Intramuscular 04/16/2017 Administered Fluzone High Dose (65yr and older) IM Intramuscular 04/22/2019 Administered Fluzone High Dose (65yr and older) IM Intramuscular 04/15/2020 Administered Fluzone High Dose (65yr and older) IM Intramuscular 04/05/2021 Administered Fluzone High Dose (65yr and older) IM Intramuscular 04/04/2022 Administered Fluzone High Dose (65yr and older) IM Intramuscular 04/19/2023 Administered Fluzone High Dose (65yr and older) IM Intramuscular 05/15/2024 Administered Fluzone High Dose (65yr and older) IM Intramuscular 04/16/2025 Administered Prevnar (PCV20) IM Intramuscular 08/14/2024 Administered Tetanus Tdap-Adacel (over 7yrs) IM Intramuscular 04/30/2007 Administered xFlu shot-36 months and older IM Intramuscular 06/04/2006 Administered xFlu shot-36 months and older IM Intramuscular 05/24/2007 Administered xFlu shot-36 months and older IM Intramuscular 05/22/2008 Administered xFlu shot-36 months and older IM Intramuscular 04/09/2009 Administered xFluzone (6mos and older)-trivalent IM Intramuscular 05/11/2010 Administered xFluzone (6mos and older)-trivalent IM Intramuscular 04/10/2011 Administered xFluzone Intradermal (18-64yrs)-trivalent ID Intradermal 03/28/2012 Administered Problems Problem Type SNOMED Code ICD Code Onset Dates Problem Status W/U Status Risk Notes Problem Hypertension (90763775) Hypertension (I10) Active confirmed Problem Osteopenia (365258235) Osteopenia (M85.80) Active confirmed Problem Localized amyloidosis (63224596) 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 Problem Chronic lymphocytic leukemia (99200404) Chronic lymphocytic leukemia (C91.10) Active confirmed Problem Cerebral hemorrhage (595610962) Nontraumatic acute cerebral hemorrhage (I61.9) Active confirmed Vital Signs Heart Rate 75 /min 06/04/2025 Blood pressure diastolic 70 mm Hg 06/04/2025 Height 63 in 06/04/2025 Blood pressure systolic 122 mm Hg 06/04/2025 Weight 111.0 lbs 06/04/2025 BMI 19.66 kg/m2 06/04/2025 Encounters Encounter Location Date Provider Diagnosis [facility] [address] [place] [id number] 08/14/2024 R Tye Fleming Adult general medica l examination Z00.00 ; Nontraumatic acute cerebral hemorrhage I61.9 ; Chronic lymphocytic leukemia C91.10 ; Hypertension I10 ; Acute deep vein thrombosis (DVT) of both lower extremities, unspecified vein I82.403 ; Encounter for immunization Z23 ; Osteopenia M85.80 and BMI less than 19,adult Z68.1 [facility] [address] [place] [id number] 12/04/2024 R Tye Fleming Hypertension I10 ; Chronic lymphocytic leukemia C91.10 ; Nontraumatic acute cerebral hemorrhage I61.9 ; Osteopenia M85.80 ; Screening for breast cancer Z12.39 and BMI less than 19,adult Z68.1 [facility] [address] [place] [id number] 01/06/2025 R Tye Fleming UTI (lower urinary tract infection) N39.0 [facility] [address] [place] [id number] 04/16/2025 R Tye Fleming Encounter for immunization Z23 [facility] [address] [place] [id number] 06/04/2025 R Tye Fleming Hypertension I10 ; Chronic lymphocytic leukemia C91.10 ; Nontraumatic acute cerebral hemorrhage I61.9 ; Osteopenia M85.80 ; 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 and Body mass index (BMI) of 19.0 to 19.9 in adult Z68.1 [facility] [address] [place], [place] [id number] 07/17/2024 R Tye Lonnie [facility] [address] [place], [place] [id number] 11/11/2024 R Tye Lonnie [facility] [address] [place], [place] [id number] 12/11/2024 R Tye Lonnie [facility] [address] [place], [place] [id number] 12/23/2024 R Tye Lonnie [facility] [address] [place], [place] [id number] 01/07/2025 R Tye Lonnie UTI (lower urinary tract infection) N39.0 [facility] [address] [place], [place] [id number] 01/13/2025 R Tye Lonnie UTI (lower urinary tract infection) N39.0 [facility] [address] [place], [place] [id number] 01/13/2025 R Tye Lonnie [facility] [address] [place], [place] [id number] 01/26/2025 R Tye Lonnie Screening for colon cancer Z12.11 [facility] [address] [place], [place] [id number] 02/06/2025 R Tye Lonnie [facility] [address] [place], [place] [id number] 02/10/2025 R Tye Lonnie [facility] [address] [place], [place] [id number] 04/20/2025 R Tye Lonnie Hypertension I10 [facility] [address] [place], [place] [id number] 06/16/2025 R Tye Lonnie Assessments Encounter Date Diagnosis (ICD Code) Assessment Notes Treatment Notes Treatment Clinical Notes Section Notes 08/14/2024 Nontraumatic acute cerebral hemorrhage (ICD-10 - I61.9) Follow-up with neurology 01/06/2025 UTI (lower urinary tract infection) (ICD-10 - N39.0) 01/07/2025 UTI (lower urinary tract infection) (ICD-10 - N39.0) 01/13/2025 UTI (lower urinary tract infection) (ICD-10 - N39.0) 01/26/2025 Screening for colon cancer (ICD-10 - Z12.11) 04/16/2025 Encounter for immunization (ICD-10 - Z23) 04/20/2025 Hypertension (ICD-10 - I10) 06/04/2025 Hypertension (ICD-10 - I10) 08/14/2024 Adult general medical examination (ICD-10 - Z00.00) Patient instructed to return to office Annually for Annual Wellness Visits to include annual screenings of Pain assessment, Functional Ability assessment, Cognitive Ability assessment, Fall Risk assessment, Depression screening and Bladder control screening. 06/04/2025 Chronic lymphocytic leukemia (ICD-10 - C91.10) 12/04/2024 Hypertension (ICD-10 - I10) 12/04/2024 Chronic lymphocytic leukemia (ICD-10 - C91.10) 12/04/2024 Nontraumatic acute cerebral hemorrhage (ICD-10 - I61.9) 06/04/2025 Nontraumatic acute cerebral hemorrhage (ICD-10 - I61.9) 08/14/2024 Chronic lymphocytic leukemia (ICD-10 - C91.10) Continue follow-up with Dr. Mckeon 08/14/2024 Hypertension (ICD-10 - I10) 06/04/2025 Osteopenia (ICD-10 - M85.80) 12/04/2024 Osteopenia (ICD-10 - M85.80) 12/04/2024 Screening for breast cancer (ICD-10 - Z12.39) 06/04/2025 Organ-limited amyloidosis (ICD-10 - E85.4) 08/14/2024 Acute deep vein thrombosis (DVT) of both lower extremities, unspecified vein (ICD-10 - I82.403) Anticoagulation deferred due to recent cerebral hemorrhage and thrombocytopenia 08/14/2024 Encounter for immunization (ICD-10 - Z23) 06/04/2025 Body mass index (BMI) of 19.0 to 19.9 in adult (ICD-10 - Z68.1) 12/04/2024 BMI less than 19,adult (ICD-10 - Z68.1) 08/14/2024 Osteopenia (ICD-10 - M85.80) 08/14/2024 BMI less than 19,adult (ICD-10 - Z68.1) Plan Of Treatment Pending Test Test Name Order Date colonoscopy 01/26/2025 Insurance Providers Payer Name Payer Address Payer Phone Subscriber Number Group Number Insured Name Patient Relationship to Insured Coverage Start Date Coverage End Date MEDICARE PART B [address] [address] [place] [address] [id number] OPAL MONET Self - patient is the insured [facility] [address] [place] [address] [phone] [id number] OPAL MONET Self - patient is the insured Medications Administered Medication Instructions Date of Administration Dosage Notes Dexamethasone 09/15/2005 1 mL Dexamethasone 09/18/2005 1 mL Medical (General) History Medical History History ICD Code Declines Prevnar 09/2017 Nontraumatic right cerebral hemorrhagic stroke 03/19/2024 requiring craniotomy and evacuation of hematoma Hypertension 03/2024 Chronic lymphocytic leukemia 03/2024 Thrombocytopenia 03/2024 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
--- OUTSIDE RECORDS SUMMARY | 2025-07-13 13:09 | XMS_ITS ---
Author Organization Healthcare Address [address] [place] [address] Care Team Providers Care Tool And Die Repairer Name Role Phone Tye Fleming MD Primary Care Provider [phone] Active Problems Problem Noted Date Diagnosed Date [...] Will continue ongoing stroke education Continue levetiracetam Glaucoma 03/19/2024 Overview (03/22/2024): Continue latanoprost Leukocytosis 03/19/2024 Overview (03/22/2024): High but stable, Tmax 101.1 Multifactorial etiology in setting of acute hemorrhage Trend for now, may require further evaluation in near future Electrolyte abnormality 03/19/2024 Overview (03/19/2024): Replace per ICU protocol Current Treatment and Therapy Plans No current [...] for sedation, now weaned off Extubate today Acute respiratory failure 03/19/2024 Overview (03/22/2024): Intubated for Hemicrani Continue aggressive pulm secretion mobilization Sedation weaned off; daily PST Wean mechanical ventilator as tolerated Extubate today 03/22 PRN CXR, blood gasses and nebs Feeding difficulties 03/19/2024 025 Overview (03/22/2024): Secondary to OETT Nutrition consulted for TF recs, appreciate coordination of care Tube feeding per nutritional recommendations via DHT HOOP PUNCH AND COILER OPERATOR consult as indicated TF slowed due to low phosphorous overnight With adequate replacement, will restart
--- OUTSIDE RECORDS SUMMARY | 2025-07-13 13:09 | XMS_ITS | Clinical Summary ---
Author Organization Healthcare Address [address] [place] [address] Care Team Providers Care Mutuel Machine Operator Name Role Phone Tye Fleming MD Primary Care Provider [phone] Allergies No known active allergies Medications amLODIPine (Norvasc) 10 MG tablet 1 tablet (10 mg) by Per G Tube route 1 (one) time each day. 4 Active bethanechol (Urecholine) 10 MG tablet 1 tablet (10 mg) by Per G Tube route 3 (three) times a day. 4 Active donepezil (Aricept) 5 MG tablet 1 tablet (5 mg) by Per G Tube route every night. 4 Active doxazosin (Cardura) 1 MG tablet 1 tablet (1 mg) by Per G Tube route every night. 4 Active ipratropium-alb uterol (Duo-Neb) 0.5-2.5 mg/3 mL nebulizer solution Take 3 mL by nebulization every 6 (six) hours if needed for wheezing. 4 Active melatonin 3 MG tablet 1 tablet (3 mg) by Per G Tube route every night. 4 Active polycarbophil (Fibercon) 625 MG tablet 1 tablet (625 mg) by Per G Tube route 1 (one) time each day. 4 Active traZODone (Desyrel) 50 MG tablet 0.5 tablets (25 mg) by Per G Tube route every night. 4 Active Calcium Carbonate-Vitam in D 250-3.125 MG-MCG tablet Take by mouth. A ctive Active Problems Problem Noted Date Diagnosed Date [...] 03/19/2024 Overview (03/19/2024): Replace per ICU protocol Resolved Problems Problem Noted Date Diagnosed Date [...] Tube feeding per nutritional recommendations via DHT LOWER IN SUPERVISOR consult as indicated TF slowed due to low phosphorous overnight With adequate replacement, will restart Immunizations Immunization Administration Dates Next Due Influenza, [...] place to sleep or slept in a fdc (including now)? No 03/20/2024 Utilities Answer Date [...] Wellness (AWV) 1950 [facility]-Infant/Child/Adol SDOH Screenings 1950 [id number] Vaccine (#1) 01/11/1951 [facility]- SDOH Screenings 1968 [facility]-Adult SDOH Screenings 1968 [facility]-DTaP,Tdap,and Td Vaccines (1 - Tdap) 1969 [facility]-Zoster Vaccines (1 of 2) 1969 CT Colonography 1995 Colonoscopy 1995 FIT-DNA 1995 FIT 1995 FOBT 1995 Sigmoidoscopy 1995 [facility]-Colorectal Cancer Screening 1995 [facility]-Breast Cancer Screening 2000 [facility]-Influenza Vaccine (#1) 03/16/202504/04, 04/05/2021, 04/15/2020, Additional history exists [facility]-Depression Screening 07/03/2025 07/03/2024 [facility]-RSV Vaccine: 60+ Years or (1 - 1-dose 75+ series) 2025 [facility]-Hepatitis C Screening Completed 03/31/2024, 10/2023 [facility]-Pneumococcal Vaccine: 50+ Years Completed 08/14/2024 HPV Vaccines (No Doses Required) Completed [facility]-HIB Vaccines Aged Out No longer e ligible based on patient's age to complete this topic [facility]-Hepatitis A Vaccines Aged Out No longer eligible based on patient's age to complete this topic [facility]-IPV Vaccines Aged Out No longer e ligible based on patient's age to complete this topic [facility]-Rotavirus Vaccines Aged Out No lo nger eligible based on patient's age to complete this topic Medical Devices Implanted Type Area Party Coordinator Device Identifier Shelf Expiration Date Model / Serial / Lot Plate, Low Profile Y 6 Hole 21 - S. - [id number] Implanted:Qty: 2 on 03/19/2024 by Jean-Paul Pina MD at [facility] Implant Right: Cranial [employer] [id number] 03/19/2026 [id number] / . / Cover, Neuro [place] Lp 17mm - S. - [id number] Implanted:Qty: 2 on 03/19/2024 by Jean-Paul Pina MD at [facility] Implant Right: [employer] [id number] 03/19/2026 421.527 / . / Graft Dura Repair 2x2 Synthe[employer] - [id number] Implanted:Qty: 1 on 03/19/2024 at [facility] Right: [employer] [id number] 07/15/2026 SC.400.02 5.01S / / [id number] Screw Ti Matrixneuro Selfdrill 4mm - [id number] Implanted:Qty: 15 on 03/19/2024 by Jean-Paul Pina MD at [facility] Right: [employer] [id number] 04.503.10 4.01 / / Filter Jug Coles Vena Cava - [id number] Implanted:Qty: 1 on 04/03/2024 by Augusto Vaughan MD at [facility] [employer]-[id number] 02/12/2026 [id number] / / [id number] Procedures Procedure Name Priority Date/Time Associated Diagnosis Comments HEPATITIS C ANTIBODY W/REFLEX TO HCV QUANT PCR Routine 03/31/2024 5:43 AM EDT from Last 3 Months or Most Recently Relevant to Health Maintenance Results * Hepatitis C Antibody (03/31/2024 5:43 AM EDT) Hepatitis C Antibody Negative Negative 03/31/2024 6:42 AM EDT [facility] Blood Venous blood specimen / Unknown Venipuncture / Unknown 03/31/2024 5:43 AM EDT 03/31/2024 6:04 AM EDT us Agatha Escudero DO LAB BLOOD ORDERABLES Final Res ult [facility] [address] [place] [address] from Last 3 Months or Most Recently Relevant to Health Maintenance Additional Health Concerns Infection Onset Date Last Indicated C. difficile 03/29/2024 03/29/2024 Insurance [employer] MEDICARE Advance Directives * Full Code (Latest Code Status on File) Date Activated Date Inactivated Comments 03/19/2024 6:48 PM 04/23/2024 3:00 PM Question Answer Comments Patient has decision-making capacity? Yes Care Teams Mutuel Machine Operator Relationship Specialty Start Date End Date Tye Fleming MD [facility] [id number] PCP - General 06/10/24
== END 2025-07-13 23:59 | disposition home or self-care (01) ==
LOC: RT 13:05
PROVIDERS: PCP Family Medicine; Visit Provider Physician Assistant
DX: Z01.810 Encounter for preprocedural cardiovascular examination (principal); I08.8 Other rheumatic multiple valve diseases; R94.31 Abnormal electrocardiogram [ECG] [EKG]; Z86.79 Personal history of other diseases of the circulatory system
CPT/HCPCS: 93306